=== PATIENT | female | born 1980 | race Hispanic/Latino ===

== ENCOUNTER → 2019-03-05 | Outpatient (CLI) | payer OTHER ==
[2019-03-05 10:27] LABS: BASOPHILS % (AUTO) 0.4 % (0.0-5.0); EOSINOPHILS % (AUTO) 1.2 % (0.0-8.0); HEMATOCRIT 24.4 % (36-48); LYMPHOCYTES % (AUTO) 22.1 % (21.0-51.0); MEAN CORPUSCULAR HEMOGLOBIN 34.1 pg (27.0-33.0); MEAN CORPUSCULAR VOLUME 100.3 fL (79-99); MONOCYTES % (AUTO) 5.3 % (3.0-13.0); NUCLEATED RED BLOOD CELLS 0.5 % (0.0-0.19); PLATELET COUNT (AUTO) 221 K/uL (130-400); RED BLOOD CELL COUNT(AUTO) 2.44 MIL/uL (4.00-5.50); RED CELL DISTRIBUTION WIDTH 14.9 % (11.0-15.5); WHITE BLOOD COUNT (AUTO) 8.7 K/uL (4.8-10.8)
[2019-03-05 10:39] LABS: % IRON SATURATION 26.7 % (22-44); HEMOGLOBIN A1C 5.1 % (4.0-6.0)
[2019-03-05 11:06] LABS: BILIRUBIN,TOTAL 0.3 mg/dL (0.2-1.0); CREATININE 0.7 mg/dL (0.5-1.5); POTASSIUM 3.8 mmol/L (3.5-5.1); THYROID STIMULATING HORMONE 7.34 uIU/mL (0.36-3.74); TOTAL PROTEIN, SERUM 7.2 g/dL (6.0-8.3)
== END | disposition home or self-care (01) ==
LOC: LAB 09:55
PROVIDERS: ATTEND Internal Medicine
DX: E78.2 Mixed hyperlipidemia (principal); D64.9 Anemia, unspecified; R53.83 Other fatigue; Z79.899 Other long term (current) drug therapy
CPT/HCPCS: 36415; 80053; 80061; 82607; 82746; 83036; 83540; 83550; 84443; 85025

== ENCOUNTER → 2019-03-08 | Outpatient (CLI) | payer OTHER ==
[~2019-03-08] MED LIST: ESOM40CA PO; FERR325T22 PO; SUCR1ORA5 PO
[2019-03-08 09:38] LABS: BASOPHILS % (AUTO) 0.6 % (0.0-5.0); EOSINOPHILS % (AUTO) 0.8 % (0.0-8.0); HEMATOCRIT 23.7 % (36-48); LYMPHOCYTES % (AUTO) 23.5 % (21.0-51.0); MEAN CORPUSCULAR HEMOGLOBIN 33.5 pg (27.0-33.0); MEAN CORPUSCULAR VOLUME 101.7 fL (79-99); MONOCYTES % (AUTO) 5.4 % (3.0-13.0); NEUTROPHILS % (AUTO) 69.7 % (40.0-77.0); NUCLEATED RED BLOOD CELLS 0.1 % (0.0-0.19); PLATELET COUNT (AUTO) 205 K/uL (130-400); RED BLOOD CELL COUNT(AUTO) 2.33 MIL/uL (4.00-5.50); RED CELL DISTRIBUTION WIDTH 16.2 % (11.0-15.5); WHITE BLOOD COUNT (AUTO) 7.1 K/uL (4.8-10.8)
[2019-03-08 09:56] LABS: INR 1.52 (0.85-1.15); PARTIAL THROMBOPLASTIN TIME 78.6 SEC (26.3-35.5); PROTHROMBIN TIME 15.8 SEC (9.6-11.6)
== END | disposition home or self-care (01) ==
LOC: LAB 08:49
PROVIDERS: ATTEND Internal Medicine
DX: D64.9 Anemia, unspecified (principal)
CPT/HCPCS: 36415; 85025; 85610; 85730

== ENCOUNTER 2019-03-09 16:10 | Inpatient (IN) | payer OTHER ==
[~2019-03-09] VITALS: Ht 154.9 cm; Wt 99.7 kg
[2019-03-09 16:45] LABS: APPEARANCE,URINE Clear (CLEAR); BILIRUBIN,URINE Negative (NEGATIVE); COLOR,URINE Yellow (YELLOW); GLUCOSE, URINE (UA) Negative (NEGATIVE); KETONES,URINE Negative (NEGATIVE); LEUKOCYTE ESTERASE ,URINE Negative (NEGATIVE); NITRATE,URINE Negative (NEGATIVE); OCCULT BLOOD,URINE Negative (NEGATIVE); PROTEIN,URINE Negative (NEGATIVE)
[2019-03-09 17:18] LABS: BASOPHILS % (AUTO) 0.4 % (0.0-5.0); EOSINOPHILS % (AUTO) 0.6 % (0.0-8.0); HEMATOCRIT 25.1 % (36-48); LYMPHOCYTES % (AUTO) 14.9 % (21.0-51.0); MEAN CORPUSCULAR HEMOGLOBIN 34.3 pg (27.0-33.0); MEAN CORPUSCULAR HGB CONC 33.9 g/dL (32.0-36.0); MEAN CORPUSCULAR VOLUME 101.2 fL (79-99); MONOCYTES % (AUTO) 6.1 % (3.0-13.0); NUCLEATED RED BLOOD CELLS 0.3 % (0.0-0.19); PLATELET COUNT (AUTO) 167 K/uL (130-400); RED BLOOD CELL COUNT(AUTO) 2.48 MIL/uL (4.00-5.50); RED CELL DISTRIBUTION WIDTH 16.6 % (11.0-15.5); WHITE BLOOD COUNT (AUTO) 8.3 K/uL (4.8-10.8)
[2019-03-09 17:31] LABS: CREATININE 0.9 mg/dL (0.5-1.5); POTASSIUM 3.9 mmol/L (3.5-5.1)
[2019-03-09 17:35] LABS: ALBUMIN 3.1 g/dL (3.5-5.0); BILIRUBIN,TOTAL 0.4 mg/dL (0.2-1.0); TOTAL PROTEIN, SERUM 7.7 g/dL (6.0-8.3)
[2019-03-09 19:06] LABS: INR 1.55 (0.85-1.15); PARTIAL THROMBOPLASTIN TIME 85.1 SEC (26.3-35.5); PROTHROMBIN TIME 16.1 SEC (9.6-11.6)
[2019-03-09] MEDS ORDERED: IOHEXOL-350 75 ML VIAL IV ONE ×2 (19:41→20:24)
[2019-03-09] MEDS ORDERED: POTASSIUM CHLORIDE 20MEQ/100ML 100 ML IV PRN (19:45)
[2019-03-09] MEDS ORDERED: MAG HYDROX/AL HYDROX/SIMETH ES 30 ML SUSP UDCUP PO PRN (19:45)
[2019-03-09] MEDS ORDERED: ONDANSETRON HCL 4 MG/2 ML VIAL IV PRN (19:45)
[2019-03-09] MEDS ORDERED: DIPHENHYDRAMINE HCL 25 MG CAPSULE PO PRN (19:45)
[2019-03-09] MEDS ORDERED: SUCR1ORA5 PO (19:45)
[2019-03-09] MEDS ORDERED: FERR325T22 PO (19:45)
[2019-03-09] MEDS ORDERED: POTASSIUM CHLORIDE 20 MEQ ERTAB PO PRN (19:45)
[2019-03-09] MEDS ORDERED: POTASSIUM CHLORIDE 10% ELIXIR 20 MEQ/15 ML UDCUP PO PRN (19:45)
[2019-03-09] MEDS ORDERED: LACTULOSE 20 GM/30 ML UDCUP PO PRN (19:45)
[2019-03-09] MEDS ORDERED: DiphenhydrAMINE HCL 50 MG/ML VIAL IV PRN (19:45)
[2019-03-09] MEDS ORDERED: LIDOCAINE HCL-MPF 1% 2ML VIAL IVP PRN (19:45)
[2019-03-09] MEDS ORDERED: ESOM40CA PO (19:45)
[2019-03-09] MEDS ORDERED: ACETAMINOPHEN 325 MG TAB PO PRN (19:45)
[2019-03-09 20:52] LABS: ABG HCO3 22.3 mmol/L (21.0-28.0); ABG OXYGEN SATURATION 93.7 % (95.0-99.0); ABG PCO2 33 mmHg (32-45)
[2019-03-09] MEDS ORDERED: NITROGLYCERIN 0.4 MG SL TAB SL PRN (21:30)
[2019-03-09] MEDS ORDERED: GUAIFENESIN-DM 200/20 MG 10 ML PO PRN (21:30)
[2019-03-09] MEDS ORDERED: CLONIDINE HCL 0.1 MG TABLET PO PRN (21:30)
[2019-03-09] MEDS ORDERED: ACETAMINOPHEN 325 MG TAB ONE (22:20)
[2019-03-10] VITALS (7 sets, daily range): BP systolic 107–137; BP diastolic 60–81
[2019-03-10 00:48] LABS: TROPONIN I 6.37 ng/mL (0.00-0.06)
--- NOTE | 2019-03-10 01:00 | NUR ---
NN CALL PLACED TO DR MICHELLE TO REPORT TROPONIN 6.37. PATIENT DENIES CHEST PAIN OR DISCOMFORT AT PRESENT TIME OF CALL. ANSWERING SERVICE TO ETHAN HAWLEY, PENDING CALL BACK.
[2019-03-10] MEDS: SODIUM CHLORIDE 0.9% 1000ML 1,000 ML IV SCH ×2 (01:39→05:28)
[2019-03-10] MEDS: FERROUS SULFATE 325 MG TABLET.DR PO SCH ×4 (01:40→20:46)
[2019-03-10] MEDS: PANTOPRAZOLE SODIUM 40 MG TABLET.DR PO SCH ×3 (01:41→20:46)
--- NOTE | 2019-03-10 02:30 | NUR ---
NN CALL PLACED TO DR MICHELLE VIA ANSWERING SERVICE DUE TO NO CALL BACK FROM PREVIOUS CALL. SPOKE TO DR MICHELLE AND INFORMED HER THAT PATIENT TROPONIN STARTED AT 3.57 ,2ND 4.03 AND LAST AT 6.37. PATIENT DENIES ANY CHEST PRESSURE OR DISCOMFORT AT THIS TIME BUT DID STATE THAT SHE WAS FEELING TIGHTENING TO MOUTH/JAW AREA EARLIER TODAY BUT NO LONGER EXPERIENCING. MD STATED THAT IF PATIENT NOT DISPLAYING OR VERBALIZING ANY CHEST PAIN WILL WAIT FOR 2DECHO RESULTS BEFORE ANY CONSULT ORDERS GIVEN.
[2019-03-10] MEDS: ZOLPIDEM TARTRATE 5 MG TAB PO PRN ×2 (03:40→22:33)
[2019-03-10] MEDS: ACETAMINOPHEN 325 MG TAB PO PRN ×2 (04:02→17:45)
[2019-03-10] MEDS ORDERED: SUCRALFATE 1 GM/10 ML ONE (05:30)
[2019-03-10] MEDS: SUCRALFATE 1 GM/10 ML PO SCH ×3 (06:25→17:33)
[2019-03-10 07:01] LABS: HEMATOCRIT 24.4 % (36-48); MEAN CORPUSCULAR HEMOGLOBIN 33.4 pg (27.0-33.0); MEAN CORPUSCULAR HGB CONC 33.2 g/dL (32.0-36.0); MEAN CORPUSCULAR VOLUME 100.9 fL (79-99); PLATELET COUNT (AUTO) 154 K/uL (130-400); RED BLOOD CELL COUNT(AUTO) 2.42 MIL/uL (4.00-5.50); RED CELL DISTRIBUTION WIDTH 16.8 % (11.0-15.5); WHITE BLOOD COUNT (AUTO) 8.1 K/uL (4.8-10.8)
--- NOTE | 2019-03-10 08:43 | NUR ---
Dr. Balbir em for elevated troponin of 10.96
--- NOTE | 2019-03-10 08:53 | NUR ---
Dr. Paula paged at this time for elevated troponin. Pending a call back
--- NOTE | 2019-03-10 20:35 | NUR ---
MD DR MICHELLE CALLED FOR UPDATES ON PT'S CONDITION AND CONSULT'S ORDERS. UPDATED MD BUT NO NEW ORDERS GIVEN.
[2019-03-10] MEDS ORDERED: FUROSEMIDE 10 MG/ML 2ML VIAL IVP SCH (21:00)
--- NOTE | 2019-03-10 21:11 | NUR ---
PAGED JACK FERNANDEZ NP FOR HOSPITALIST, PAGED VIA ANSWERING SERVICE. CALL CENTER SUPPORT CONSULTANT MADE AWARE OF PT'S COMPLAINTS OF PAINS ON HER CHEST WITH BREATHING, FACE AND NECK. NEW MED ORDERS GIVEN, PLEASE REFER TO CPOE. WILL MEDICATE PT.
[2019-03-10] MEDS ORDERED: METHYLPREDNISOLONE SOD SUCC 40MG/ML 1ML IVP SCH (21:15)
[2019-03-10] MEDS: KETOROLAC TROMETHAMINE 30MG/ML IV SCH ×2 (21:15→22:00)
[2019-03-10] MEDS ORDERED: METHYLPREDNISOLONE SOD SUCC 40MG/ML 1ML ONE (21:30)
[2019-03-10] MEDS ORDERED: KETOROLAC TROMETHAMINE 30MG/ML ONE (21:31)
[2019-03-10] MEDS: IPRATROPIUM/ALBUTEROL SULFATE 3 ML SOLUTION IH SCH (23:53)
--- NOTE | 2019-03-11 02:00 | NUR ---
ROUNDS PT FAIRLY ASLEEP, WITH RESPIRATIONS EVEN AND UNLABORED. NO NOTED DISTRESS. KEPT UNDISTURBED FOR NOW. WILL MONITOR PT. CALL LIGHT WITHIN REACH.
[2019-03-11 05:02] VITALS: BP 105/60
--- NOTE | 2019-03-11 05:41 | NUR ---
ROUNDS PT RESTING WELL, SLEPT AT LONG INTERVALS. NO DISTRESS NOTED. KEPT COMFORTABLE. FOR MORE CARE.
[2019-03-11] MEDS: KETOROLAC TROMETHAMINE 30MG/ML IV SCH (05:52)
[2019-03-11] MEDS: SUCRALFATE 1 GM TABLET PO SCH ×3 (06:35→17:11)
[2019-03-11] MEDS: IPRATROPIUM/ALBUTEROL SULFATE 3 ML SOLUTION IH SCH ×4 (07:21→23:06)
[2019-03-11] MEDS: PANTOPRAZOLE SODIUM 40 MG TABLET.DR PO SCH ×2 (09:34→20:36)
[2019-03-11] MEDS: FERROUS SULFATE 325 MG TABLET.DR PO SCH ×2 (09:34→20:36)
[2019-03-11] MEDS: FUROSEMIDE 20 MG TABLET PO SCH ×2 (09:34→17:11)
[2019-03-11] MEDS: PREDNISONE 20 MG TABLET PO SCH (09:34)
[2019-03-11 12:00] VITALS: BP 90/47
[2019-03-11 16:00] VITALS: BP 120/70
--- NOTE | 2019-03-11 17:20 | NUR ---
INITIAL:] Met with pt to discuss dcp. Pt states that prior to admission she was living w spouse and dtr. She is independent w ambulation and aDLs. Does not own any DME or receive services. Pt states she feels safe and comfortable to [place] at [place]. Will continue to follow and wait for Md recommendations. Addendum: 03/11/19 at 1721 by CLAUDIA BLUE CM Amended: Links added.
[2019-03-11 19:54] VITALS: BP 118/61
[2019-03-12] VITALS (13 sets, daily range): BP systolic 100–134; BP diastolic 54–83
[2019-03-12] MEDS: ZOLPIDEM TARTRATE 5 MG TAB PO PRN (00:27)
--- NOTE | 2019-03-12 00:27 | NUR ---
PEDRO LUIS Pt medicated with Pedro Luis for sleep.Pt showered and clipped per staff.
[2019-03-12] MEDS: SUCRALFATE 1 GM TABLET PO SCH ×3 (05:44→17:00)
[2019-03-12 06:11] LABS: HEMATOCRIT 24.8 % (36-48); MEAN CORPUSCULAR HGB CONC 31.8 g/dL (32.0-36.0); MEAN CORPUSCULAR VOLUME 100.4 fL (79-99); NUCLEATED RED BLOOD CELLS 0.1 % (0.0-0.19); PLATELET COUNT (AUTO) 192 K/uL (130-400); RED BLOOD CELL COUNT(AUTO) 2.47 MIL/uL (4.00-5.50); RED CELL DISTRIBUTION WIDTH 16.9 % (11.0-15.5); WHITE BLOOD COUNT (AUTO) 11.6 K/uL (4.8-10.8)
[2019-03-12 06:25] LABS: CREATININE 0.9 mg/dL (0.5-1.5); POTASSIUM 3.2 mmol/L (3.5-5.1)
[2019-03-12 06:32] LABS: INR 1.48 (0.85-1.15); PARTIAL THROMBOPLASTIN TIME 74.4 SEC (26.3-35.5); PROTHROMBIN TIME 15.4 SEC (9.6-11.6)
[2019-03-12] MEDS: IPRATROPIUM/ALBUTEROL SULFATE 3 ML SOLUTION IH SCH ×4 (07:23→23:53)
[2019-03-12] MEDS: PREDNISONE 20 MG TABLET PO SCH (09:00)
[2019-03-12] MEDS: FERROUS SULFATE 325 MG TABLET.DR PO SCH ×2 (09:00→21:01)
[2019-03-12] MEDS: FUROSEMIDE 20 MG TABLET PO SCH ×2 (09:00→17:00)
[2019-03-12] MEDS: PANTOPRAZOLE SODIUM 40 MG TABLET.DR PO SCH ×2 (09:00→21:01)
[2019-03-12] MEDS ORDERED: FURO20TA4 PO (13:52)
[2019-03-12] MEDS ORDERED: PRED10TA3 PO (13:52)
[2019-03-12] MEDS ORDERED: POTA10TA14 PO (13:52)
[2019-03-12] MEDS ORDERED: NITROGLYCERIN 5 MG/ML 10 ML VIAL IV ONE (18:06)
[2019-03-12] MEDS ORDERED: HEPARIN SODIUM 1000UNIT/ML 10ML VIAL ONE (18:06)
[2019-03-12] MEDS ORDERED: VERAPAMIL HCL 2.5 MG/ML VIAL ONE (18:06)
[2019-03-12] MEDS ORDERED: IOHEXOL 350 MG/ML 100ML INFUS..BTL IV ONE ×2 (18:07→19:37)
[2019-03-12] MEDS ORDERED: IOHEXOL-350 50ML VIAL IV ONE (18:07)
[2019-03-12] MEDS ORDERED: LIDOCAINE HCL 2% 20ML ONE (18:07)
[2019-03-12] MEDS ORDERED: POTASSIUM CHLORIDE 20 MEQ ERTAB PO ONE (19:15)
[2019-03-12] MEDS ORDERED: FENTANYL CITRATE PF 50 MCG/1 ML 2ML VIAL ONE (19:38)
[2019-03-12] MEDS ORDERED: MIDAZOLAM HCL 1 MG/ML 2ML VIAL ONE (19:39)
[2019-03-12] MEDS ORDERED: SODIUM CHLORIDE 0.9% 1000ML 1,000 ML IV SCH (20:07)
[2019-03-13] MEDS ORDERED: MORPHINE SULFATE 2 MG/ML 1ML SYG IVP PRN (03:00)
[2019-03-13] MEDS ORDERED: TRAMADOL HCL 50 MG TABLET PO PRN (03:00)
[2019-03-13] MEDS: MORPHINE SULFATE 2 MG/ML 1ML SYG ONE ×2 (03:07→03:10)
[2019-03-13 03:48] VITALS: BP 98/56
[2019-03-13] MEDS: IPRATROPIUM/ALBUTEROL SULFATE 3 ML SOLUTION IH SCH ×2 (05:13→10:48)
[2019-03-13 07:44] VITALS: BP 110/63
[2019-03-13] MEDS: SUCRALFATE 1 GM TABLET PO SCH ×2 (07:55→11:28)
[2019-03-13] MEDS: PANTOPRAZOLE SODIUM 40 MG TABLET.DR PO SCH (09:59)
[2019-03-13] MEDS: FERROUS SULFATE 325 MG TABLET.DR PO SCH (09:59)
[2019-03-13] MEDS: FUROSEMIDE 20 MG TABLET PO SCH (09:59)
[2019-03-13] MEDS: PREDNISONE 20 MG TABLET PO SCH (09:59)
[2019-03-13 11:22] VITALS: BP 107/61
[2019-03-13 15:13] VITALS: BP 104/59
== END 2019-03-13 15:35 | disposition home or self-care (01) | DRG 286 ==
LOC: EDH 16:10 → EDHIP 19:15 → OBSVTOIN 19:15 → 3DH 03-10 00:03 → 2AH 03-12 20:42
PROVIDERS: ADMIT Internal Medicine; ATTEND Internal Medicine
PROC: B2151ZZ Fluoroscopy of Left Heart using Low Osmolar Contrast (ICD-10-PCS; principal; 2019-03-12)
PROC: B2111ZZ Fluoroscopy of Multiple Coronary Arteries using Low Osmolar Contrast (ICD-10-PCS; 2019-03-12)
PROC: 4A023N7 Measurement of Cardiac Sampling and Pressure, Left Heart, Percutaneous Approach (ICD-10-PCS; 2019-03-12)
DX: I11.0 Hypertensive heart disease with heart failure (principal); I50.31 Acute diastolic (congestive) heart failure; D68.62 Lupus anticoagulant syndrome; Z68.41 Body mass index [BMI] 40.0-44.9, adult; M32.9 Systemic lupus erythematosus, unspecified; E66.01 Morbid (severe) obesity due to excess calories; K76.0 Fatty (change of) liver, not elsewhere classified; E88.81 Metabolic syndrome and other insulin resistance; K21.9 Gastro-esophageal reflux disease without esophagitis; E78.2 Mixed hyperlipidemia; J30.9 Allergic rhinitis, unspecified; F41.1 Generalized anxiety disorder; Z82.0 Family history of epilepsy and other diseases of the nervous system; Z82.3 Family history of stroke; Z82.49 Family history of ischemic heart disease and other diseases of the circulatory system; Z82.5 Family history of asthma and other chronic lower respiratory diseases; Z83.3 Family history of diabetes mellitus; Z90.710 Acquired absence of both cervix and uterus; Z90.721 Acquired absence of ovaries, unilateral
CPT/HCPCS: 36415; 36600; 71045; 71046; 71275; 74176; 80048; 80053; 81003; 82043; 82270; 82550; 82803; 82948; 83874; 83880; 84132; 84484; 85025; 85027; 85378; 85610; 85651; 85730; 86140; 86215; 86850; 86900; 86901; 93005; 93306; 93458; 93970; 94640; 94664; 99156; 99157; C1769; G0378; J1644; J1885; J1940; J2250; J2920; J3010; J3490; J7030; Q9967

== ENCOUNTER → 2019-03-15 | Outpatient (CLI) | payer OTHER ==
[~2019-03-15] MED LIST changes: +FURO20TA4 PO; +POTA10TA14 PO; +PRED10TA3 PO
[2019-03-15 14:11] LABS: BASOPHILS % (AUTO) 0.5 % (0.0-5.0); EOSINOPHILS % (AUTO) 0.4 % (0.0-8.0); HEMATOCRIT 28.2 % (36-48); LYMPHOCYTES % (AUTO) 11.2 % (21.0-51.0); MEAN CORPUSCULAR HEMOGLOBIN 31.5 pg (27.0-33.0); MEAN CORPUSCULAR HGB CONC 32.3 g/dL (32.0-36.0); MEAN CORPUSCULAR VOLUME 97.5 fL (79-99); NEUTROPHILS % (AUTO) 83.9 % (40.0-77.0); PLATELET COUNT (AUTO) 151 K/uL (130-400); RED BLOOD CELL COUNT(AUTO) 2.89 MIL/uL (4.00-5.50); RED CELL DISTRIBUTION WIDTH 16.2 % (11.0-15.5); WHITE BLOOD COUNT (AUTO) 10.9 K/uL (4.8-10.8)
== END | disposition home or self-care (01) ==
LOC: LAB 13:35
PROVIDERS: ATTEND Internal Medicine
DX: D69.1 Qualitative platelet defects (principal); D64.9 Anemia, unspecified
CPT/HCPCS: 36415; 85025

== ENCOUNTER → 2019-04-25 | Outpatient (CLI) | payer OTHER ==
[2019-04-25 10:50] LABS: BASOPHILS % (AUTO) 0.4 % (0.0-5.0); EOSINOPHILS % (AUTO) 1.3 % (0.0-8.0); HEMATOCRIT 34.3 % (36-48); MEAN CORPUSCULAR HEMOGLOBIN 32.4 pg (27.0-33.0); MEAN CORPUSCULAR HGB CONC 33.7 g/dL (32.0-36.0); MEAN CORPUSCULAR VOLUME 96.1 fL (79-99); MONOCYTES % (AUTO) 6.7 % (3.0-13.0); NEUTROPHILS % (AUTO) 60.6 % (40.0-77.0); PLATELET COUNT (AUTO) 252 K/uL (130-400); RED BLOOD CELL COUNT(AUTO) 3.57 MIL/uL (4.00-5.50); RED CELL DISTRIBUTION WIDTH 14.9 % (11.0-15.5); WHITE BLOOD COUNT (AUTO) 4.7 K/uL (4.8-10.8)
[2019-04-25 10:57] LABS: CREATININE 0.7 mg/dL (0.5-1.5); POTASSIUM 3.8 mmol/L (3.5-5.1)
[2019-04-25 11:08] LABS: INR 1.46 (0.85-1.15); PARTIAL THROMBOPLASTIN TIME 82.2 SEC (26.3-35.5); PROTHROMBIN TIME 15.2 SEC (9.6-11.6)
[2019-04-25 11:10] LABS: ALBUMIN 3.6 g/dL (3.5-5.0); BILIRUBIN,TOTAL 0.4 mg/dL (0.2-1.0); THYROID STIMULATING HORMONE 4.21 uIU/mL (0.36-3.74); TOTAL PROTEIN, SERUM 8.7 g/dL (6.0-8.3)
[2019-04-25 12:04] LABS: ERYTHROCYTE SEDIMENTATION RATE 106 MM/HR (0-20)
== END | disposition home or self-care (01) ==
LOC: LAB 09:13
PROVIDERS: ATTEND Internal Medicine
DX: R76.8 Other specified abnormal immunological findings in serum (principal)
CPT/HCPCS: 36415; 80053; 84443; 85025; 85610; 85651; 85730; 85732; 86038; 86235; 86255

== ENCOUNTER 2019-05-03 09:05 | Day surgery (SDC) | payer OTHER ==
[2019-05-03] VITALS (8 sets, daily range): BP systolic 114–136; BP diastolic 68–85
[~2019-05-03] VITALS: Ht 154.9 cm; Wt 101.6 kg
[~2019-05-03 09:05] MED LIST changes: -ESOM40CA PO; -FURO20TA4 PO; -POTA10TA14 PO; -PRED10TA3 PO; +SODIUM CHLORIDE 0.9% 1000ML 1,000 ML IV ONE
--- NOTE | 2019-05-03 12:01 | NUR ---
DISCHARGE PATIENT DISCHARGE HOME IN SATISFACTORY CONDITION VIA WHEEL CHAIR ACCOMPANIED BY HER GONSALO. NO DISTRESS NOTED. ALL DISCHARGE INSTRUCTION DISCUSSED AND COPIES HANDED TO PATIENT. NO QUESTIONS AT THIS TIME. PIV SITE W/ DRESSING, NO BLEEDING NOTED.
== END 2019-05-03 12:01 | disposition home or self-care (01) ==
LOC: DAH 09:05 → ENDO 09:05
PROVIDERS: ATTEND Internal Medicine
DX: D50.9 Iron deficiency anemia, unspecified (principal); K92.2 Gastrointestinal hemorrhage, unspecified; R10.13 Epigastric pain; Z90.710 Acquired absence of both cervix and uterus; Z79.899 Other long term (current) drug therapy; Z53.8 Procedure and treatment not carried out for other reasons
CPT/HCPCS: 43235; A4606; J7030

== ENCOUNTER → 2019-05-21 | Outpatient (CLI) | payer OTHER ==
[~2019-05-21] MED LIST changes: -SODIUM CHLORIDE 0.9% 1000ML 1,000 ML IV ONE
[2019-05-21 16:18] LABS: BASOPHILS % (AUTO) 0.7 % (0.0-5.0); EOSINOPHILS % (AUTO) 1.3 % (0.0-8.0); HEMATOCRIT 29.1 % (36-48); LYMPHOCYTES % (AUTO) 22.7 % (21.0-51.0); MEAN CORPUSCULAR HEMOGLOBIN 32.4 pg (27.0-33.0); MEAN CORPUSCULAR VOLUME 98.2 fL (79-99); MONOCYTES % (AUTO) 6.5 % (3.0-13.0); NEUTROPHILS % (AUTO) 68.8 % (40.0-77.0); NUCLEATED RED BLOOD CELLS 0.1 % (0.0-0.19); PLATELET COUNT (AUTO) 240 K/uL (130-400); RED BLOOD CELL COUNT(AUTO) 2.96 MIL/uL (4.00-5.50); WHITE BLOOD COUNT (AUTO) 7.2 K/uL (4.8-10.8)
[2019-05-21 16:38] LABS: INR 1.58 (0.85-1.15); PARTIAL THROMBOPLASTIN TIME 85.1 SEC (26.3-35.5); PROTHROMBIN TIME 16.4 SEC (9.6-11.6)
== END | disposition home or self-care (01) ==
LOC: RAH 15:39
PROVIDERS: ATTEND Internal Medicine
DX: D64.9 Anemia, unspecified (principal); K92.89 Other specified diseases of the digestive system; R60.9 Edema, unspecified; M54.2 Cervicalgia
CPT/HCPCS: 36415; 85025; 85610; 85730

== ENCOUNTER 2019-05-29 05:30 | Day surgery (SDC) | payer OTHER ==
[~2019-05-29] VITALS: Ht 154.9 cm; Wt 102.7 kg
[2019-05-29 05:35] VITALS: BP 146/79
[2019-05-29] MEDS ORDERED: SODIUM CHLORIDE 0.9% 1000ML 1,000 ML IV ONE (05:41)
[2019-05-29] MEDS ORDERED: OMEP40CA37 PO (06:01)
[2019-05-29] MEDS ORDERED: PROPOFOL 10 MG/ML 20ML VIAL IV ONE (07:11)
[2019-05-29 07:23] VITALS: BP 125/66
[2019-05-29 07:27] VITALS: BP 107/72
[2019-05-29 07:32] VITALS: BP 109/69
[2019-05-29 07:37] VITALS: BP 122/71
[2019-05-29 07:42] VITALS: BP 132/79
== END 2019-05-29 07:52 | disposition home or self-care (01) ==
LOC: ENDO 05:30 → DAH 05:30 → ENDO 07:52
PROVIDERS: ATTEND Internal Medicine
DX: K29.50 Unspecified chronic gastritis without bleeding (principal); K31.89 Other diseases of stomach and duodenum; K20.8 Other esophagitis; E66.9 Obesity, unspecified; Z68.41 Body mass index [BMI] 40.0-44.9, adult; D50.9 Iron deficiency anemia, unspecified; Z98.890 Other specified postprocedural states; Z79.899 Other long term (current) drug therapy; Z90.710 Acquired absence of both cervix and uterus; Z82.49 Family history of ischemic heart disease and other diseases of the circulatory system; Z83.3 Family history of diabetes mellitus; Z82.3 Family history of stroke
CPT/HCPCS: 43239; A4606; J2704; J7030

== ENCOUNTER → 2019-08-30 | Outpatient (CLI) | payer OTHER ==
[~2019-08-30] MED LIST changes: +OMEP40CA13 PO
[2019-08-30 11:21] LABS: BASOPHILS % (AUTO) 0.5 % (0.0-5.0); EOSINOPHILS % (AUTO) 0.9 % (0.0-8.0); HEMATOCRIT 34.9 % (36-48); LYMPHOCYTES % (AUTO) 33.3 % (21.0-51.0); MEAN CORPUSCULAR HEMOGLOBIN 31.6 pg (27.0-33.0); MEAN CORPUSCULAR HGB CONC 33.5 g/dL (32.0-36.0); MEAN CORPUSCULAR VOLUME 94.3 fL (79-99); MONOCYTES % (AUTO) 5.5 % (3.0-13.0); NEUTROPHILS % (AUTO) 59.8 % (40.0-77.0); NUCLEATED RED BLOOD CELLS 0.1 % (0.0-0.19); PLATELET COUNT (AUTO) 256 K/uL (130-400); RED CELL DISTRIBUTION WIDTH 14.8 % (11.0-15.5); WHITE BLOOD COUNT (AUTO) 5.8 K/uL (4.8-10.8)
[2019-08-30 11:40] LABS: INR 1.78 (0.85-1.15); PROTHROMBIN TIME 18.3 SEC (9.6-11.6)
[2019-08-30 11:41] LABS: ALBUMIN 3.4 g/dL (3.5-5.0); BILIRUBIN,TOTAL 0.4 mg/dL (0.2-1.0); CREATININE 0.7 mg/dL (0.5-1.5); POTASSIUM 4.1 mmol/L (3.5-5.1); TOTAL PROTEIN, SERUM 8.1 g/dL (6.0-8.3)
[2019-08-30 11:57] LABS: PARTIAL THROMBOPLASTIN TIME 93.1 SEC (26.3-35.5)
== END | disposition home or self-care (01) ==
LOC: LAB 10:18
PROVIDERS: ATTEND Internal Medicine
DX: D64.9 Anemia, unspecified (principal); E78.2 Mixed hyperlipidemia
CPT/HCPCS: 36415; 80053; 80061; 85025; 85610; 85730

== ENCOUNTER → 2020-01-07 | Outpatient (CLI) | payer OTHER ==
[~2020-01-07] MED LIST changes: +SUCR1ORA15 PO; -SUCR1ORA5 PO
[2020-01-07 15:20] LABS: BASOPHILS % (AUTO) 0.2 % (0.0-5.0); EOSINOPHILS % (AUTO) 1.1 % (0.0-8.0); HEMATOCRIT 22.9 % (36-48); LYMPHOCYTES % (AUTO) 26.4 % (21.0-51.0); MEAN CORPUSCULAR HEMOGLOBIN 27.4 pg (27.0-33.0); MEAN CORPUSCULAR HGB CONC 28.8 g/dL (32.0-36.0); MONOCYTES % (AUTO) 3.8 % (3.0-13.0); NEUTROPHILS % (AUTO) 67.7 % (40.0-77.0); NUCLEATED RED BLOOD CELLS 0.8 % (0.0-0.19); PLATELET COUNT (AUTO) 280 K/uL (130-400); RED BLOOD CELL COUNT(AUTO) 2.41 MIL/uL (4.00-5.50); RED CELL DISTRIBUTION WIDTH 16.9 % (11.0-15.5); WHITE BLOOD COUNT (AUTO) 6.1 K/uL (4.8-10.8)
[2020-01-07 15:28] LABS: HEMOGLOBIN A1C 4.5 % (4.0-6.0)
[2020-01-07 15:40] LABS: INR 1.52 (0.85-1.15); PARTIAL THROMBOPLASTIN TIME 80.9 SEC (26.3-35.5); PROTHROMBIN TIME 16.2 SEC (9.6-11.6)
[2020-01-07 16:05] LABS: ALANINE AMINOTRANSFERASE 37 U/L (12-78); ALBUMIN 3.3 g/dL (3.5-5.0); ASPARTATE AMINOTRANSFERASE 27 U/L (10-37); BILIRUBIN,TOTAL 0.3 mg/dL (0.2-1.0); CARBON DIOXIDE 27 mmol/L (21-32); CHLORIDE 104 mmol/L (101-111); CHOLESTEROL 152 mg/dL (<200); CREATININE 0.8 mg/dL (0.5-1.5); GLOMERULAR FILTR. RATE CALC 85 mL/min (>60); GLUCOSE,RANDOM 116 mg/dL (70-105); HDL CHOLESTEROL 37 mg/dL (35-85); LDL DIRECT 103 mg/dL (0-99); POTASSIUM 3.6 mmol/L (3.5-5.1); SODIUM SERUM 138 mmol/L (136-145); TOTAL PROTEIN, SERUM 7.8 g/dL (6.0-8.3); TRIGLYCERIDES 81 mg/dL (30-200); UREA NITROGEN, BLOOD 12 mg/dL (7-18)
[2020-01-07 16:25] LABS: FERRITIN 15 ng/mL (15-150); IRON, SERUM 33 mcg/dL (50-170)
== END | disposition home or self-care (01) ==
LOC: LAB 14:24
PROVIDERS: ATTEND Internal Medicine
DX: Z13.29 Encounter for screening for other suspected endocrine disorder (principal); E78.2 Mixed hyperlipidemia; E88.81 Metabolic syndrome and other insulin resistance; D64.9 Anemia, unspecified
CPT/HCPCS: 36415; 80053; 80061; 82607; 82728; 82746; 83036; 83540; 85025; 85610; 85730

== ENCOUNTER 2020-01-08 08:55 | Day surgery (SDC) | payer OTHER ==
[~2020-01-08] VITALS: Ht 157.5 cm; Wt 102.5 kg
[2020-01-08 09:36] VITALS: BP 140/73
--- NOTE | 2020-01-08 13:20 | NUR ---
blood blood transfusion started at this time witness by jeffry mercado rn. pt instructed to call nurse for any s&s of itching, hives, sob, or anything different. blood warmer being used for blood transfusion. spouse at bedside. call light within reach.
[2020-01-08 14:43] VITALS: BP 108/54
[2020-01-08 15:35] VITALS: BP 114/53
[2020-01-08 16:09] LABS: BASOPHILS % (AUTO) 0.3 % (0.0-5.0); EOSINOPHILS % (AUTO) 1.3 % (0.0-8.0); HEMATOCRIT 24.8 % (36-48); LYMPHOCYTES % (AUTO) 28.4 % (21.0-51.0); MEAN CORPUSCULAR HEMOGLOBIN 27.9 pg (27.0-33.0); MEAN CORPUSCULAR HGB CONC 29.8 g/dL (32.0-36.0); MEAN CORPUSCULAR VOLUME 93.6 fL (79-99); NEUTROPHILS % (AUTO) 62.1 % (40.0-77.0); NUCLEATED RED BLOOD CELLS 0.7 % (0.0-0.19); PLATELET COUNT (AUTO) 268 K/uL (130-400); RED BLOOD CELL COUNT(AUTO) 2.65 MIL/uL (4.00-5.50); RED CELL DISTRIBUTION WIDTH 16.5 % (11.0-15.5)
[2020-03-10] MEDS ORDERED: MONT10TA26 PO ×2 (17:04)
[2020-03-13] MEDS ORDERED: PANT40TA54 PO ×2 (08:32)
[2020-03-24] MEDS ORDERED: IRON SUPPLEMENT PO ×2 (12:19)
[2020-03-25] MEDS ORDERED: FURO40TA5 PO ×2 (08:41)
[2020-03-25] MEDS ORDERED: POTA-79 PO ×2 (08:41)
== END 2020-01-08 16:10 | disposition home or self-care (01) ==
LOC: DAH 08:55
PROVIDERS: ATTEND Internal Medicine
DX: D64.9 Anemia, unspecified (principal)
CPT/HCPCS: 36415; 36430; 85025; 86156; 86850; 86870; 86900; 86901; 86922; A4215; A4216; A4221; A4222; A4657; A4663; P9016

== ENCOUNTER 2020-01-14 10:43 | Day surgery (SDC) | payer OTHER ==
[2020-01-14 11:00] VITALS: BP 133/76
[2020-01-14 11:59] LABS: BASOPHILS % (AUTO) 0.2 % (0.0-5.0); EOSINOPHILS % (AUTO) 0.2 % (0.0-8.0); HEMATOCRIT 26.9 % (36-48); MEAN CORPUSCULAR HEMOGLOBIN 27.6 pg (27.0-33.0); MEAN CORPUSCULAR HGB CONC 29.7 g/dL (32.0-36.0); MEAN CORPUSCULAR VOLUME 92.8 fL (79-99); MONOCYTES % (AUTO) 5.2 % (3.0-13.0); NUCLEATED RED BLOOD CELLS 0.2 % (0.0-0.19); PLATELET COUNT (AUTO) 220 K/uL (130-400); RED CELL DISTRIBUTION WIDTH 16.6 % (11.0-15.5); WHITE BLOOD COUNT (AUTO) 12.2 K/uL (4.8-10.8)
--- NOTE | 2020-01-14 12:30 | NUR ---
CBC RESULTS REPORTED TO DR. MICHELLE OFFICE, H 8.0, PT NOT SYMPTOMATIC. PER KRIS CLAIRE,VISE HAND HOLD TRANSFUSION, DOES NOT MEET CRITERIA.
[2020-03-10] MEDS ORDERED: MONT10TA26 PO ×2 (17:04)
[2020-03-13] MEDS ORDERED: PANT40TA54 PO ×2 (08:32)
[2020-03-24] MEDS ORDERED: IRON SUPPLEMENT PO ×2 (12:19)
[2020-03-25] MEDS ORDERED: POTA-79 PO ×2 (08:41)
[2020-03-25] MEDS ORDERED: FURO40TA5 PO ×2 (08:41)
== END 2020-01-14 12:43 | disposition home or self-care (01) ==
LOC: DAH 10:43
PROVIDERS: ATTEND Internal Medicine
DX: D64.9 Anemia, unspecified (principal); Z79.899 Other long term (current) drug therapy; Z98.890 Other specified postprocedural states; Z82.49 Family history of ischemic heart disease and other diseases of the circulatory system; Z83.3 Family history of diabetes mellitus
CPT/HCPCS: 36415; 85025; 86901

== ENCOUNTER → 2020-01-21 | Outpatient (CLI) | payer OTHER ==
[2020-01-21 10:00] LABS: BASOPHILS % (AUTO) 0.2 % (0.0-5.0); EOSINOPHILS % (AUTO) 0.6 % (0.0-8.0); HEMATOCRIT 31.5 % (36-48); LYMPHOCYTES % (AUTO) 32.1 % (21.0-51.0); MEAN CORPUSCULAR HEMOGLOBIN 26.2 pg (27.0-33.0); MEAN CORPUSCULAR HGB CONC 28.9 g/dL (32.0-36.0); MEAN CORPUSCULAR VOLUME 90.8 fL (79-99); MONOCYTES % (AUTO) 4.7 % (3.0-13.0); PLATELET COUNT (AUTO) 246 K/uL (130-400); RED BLOOD CELL COUNT(AUTO) 3.47 MIL/uL (4.00-5.50); RED CELL DISTRIBUTION WIDTH 14.8 % (11.0-15.5); WHITE BLOOD COUNT (AUTO) 10.5 K/uL (4.8-10.8)
== END | disposition home or self-care (01) ==
LOC: LAB 09:11
PROVIDERS: ATTEND Internal Medicine
DX: D68.9 Coagulation defect, unspecified (principal); Z87.19 Personal history of other diseases of the digestive system
CPT/HCPCS: 36415; 85025

== ENCOUNTER → 2020-01-29 | Outpatient (CLI) | payer OTHER ==
[~2020-01-29] MED LIST changes: +ACET1TAB12 PO; +CYAN250014 PO; +FAMO20TA8 PO; +FAMO40TA7 PO; +FOLI0.8C PO; +FURO20TA6 PO; +FURO40TA5 PO; +IRON SUPPLEMENT PO; +MONT10TA26 PO; +PANT40TA54 PO; +POTA-79 PO; +PRED10TA3 PO; +SUCR1TAB2 PO; +THIA100T91 PO
[2020-01-29 10:44] LABS: BASOPHILS % (AUTO) 0.4 % (0.0-5.0); HEMATOCRIT 32.6 % (36-48); LYMPHOCYTES % (AUTO) 23.6 % (21.0-51.0); MEAN CORPUSCULAR HEMOGLOBIN 26.6 pg (27.0-33.0); MEAN CORPUSCULAR HGB CONC 29.4 g/dL (32.0-36.0); MEAN CORPUSCULAR VOLUME 90.3 fL (79-99); MONOCYTES % (AUTO) 6.9 % (3.0-13.0); NEUTROPHILS % (AUTO) 67.6 % (40.0-77.0); PLATELET COUNT (AUTO) 308 K/uL (130-400); RED BLOOD CELL COUNT(AUTO) 3.61 MIL/uL (4.00-5.50); RED CELL DISTRIBUTION WIDTH 14.6 % (11.0-15.5)
== END | disposition home or self-care (01) ==
LOC: LAB 09:45
PROVIDERS: ATTEND Internal Medicine
DX: D64.9 Anemia, unspecified (principal)
CPT/HCPCS: 36415; 85025

== ENCOUNTER → 2020-02-13 | Outpatient (CLI) | payer OTHER ==
[~2020-02-13] MED LIST changes: -ACET1TAB12 PO; -CYAN250014 PO; -FAMO20TA8 PO; -FAMO40TA7 PO; -FOLI0.8C PO; -FURO20TA6 PO; -FURO40TA5 PO; -IRON SUPPLEMENT PO; -MONT10TA26 PO; -PANT40TA54 PO; -POTA-79 PO; -PRED10TA3 PO; -SUCR1TAB2 PO; -THIA100T91 PO
[2020-02-13 10:26] LABS: BASOPHILS % (AUTO) 0.4 % (0.0-5.0); EOSINOPHILS % (AUTO) 1.5 % (0.0-8.0); LYMPHOCYTES % (AUTO) 27.8 % (21.0-51.0); MEAN CORPUSCULAR HEMOGLOBIN 27.2 pg (27.0-33.0); MEAN CORPUSCULAR HGB CONC 30.3 g/dL (32.0-36.0); MEAN CORPUSCULAR VOLUME 89.9 fL (79-99); MONOCYTES % (AUTO) 8.3 % (3.0-13.0); NEUTROPHILS % (AUTO) 61.4 % (40.0-77.0); NUCLEATED RED BLOOD CELLS 0.4 % (0.0-0.19); PLATELET COUNT (AUTO) 236 K/uL (130-400); RED BLOOD CELL COUNT(AUTO) 3.56 MIL/uL (4.00-5.50); RED CELL DISTRIBUTION WIDTH 15.2 % (11.0-15.5); WHITE BLOOD COUNT (AUTO) 4.8 K/uL (4.8-10.8)
== END | disposition home or self-care (01) ==
LOC: LAB 10:07
PROVIDERS: ATTEND Internal Medicine
DX: D64.9 Anemia, unspecified (principal)
CPT/HCPCS: 36415; 85025

== ENCOUNTER → 2020-02-25 | Outpatient (CLI) | payer OTHER ==
[2020-02-25 09:00] LABS: BASOPHILS % (AUTO) 0.4 % (0.0-5.0); EOSINOPHILS % (AUTO) 0.9 % (0.0-8.0); HEMATOCRIT 33.4 % (36-48); LYMPHOCYTES % (AUTO) 18.2 % (21.0-51.0); MEAN CORPUSCULAR HEMOGLOBIN 27.5 pg (27.0-33.0); MEAN CORPUSCULAR HGB CONC 29.9 g/dL (32.0-36.0); MONOCYTES % (AUTO) 6.1 % (3.0-13.0); PLATELET COUNT (AUTO) 228 K/uL (130-400); RED BLOOD CELL COUNT(AUTO) 3.63 MIL/uL (4.00-5.50); RED CELL DISTRIBUTION WIDTH 16.3 % (11.0-15.5)
== END | disposition home or self-care (01) ==
LOC: LAB 08:17
PROVIDERS: ATTEND Internal Medicine
DX: D64.9 Anemia, unspecified (principal)
CPT/HCPCS: 36415; 85025

== ENCOUNTER 2020-02-29 06:17 | Day surgery (SDC) | payer OTHER ==
[2020-02-29] VITALS (7 sets, daily range): BP systolic 108–136; BP diastolic 58–113
[~2020-02-29] VITALS: Ht 154.9 cm; Wt 104.3 kg
[2020-02-29] MEDS ORDERED: SODIUM CHLORIDE 0.9% 1000ML 1,000 ML IV ONE (06:24)
[2020-02-29] MEDS ORDERED: CYAN250014 PO ×2 (07:39)
[2020-02-29] MEDS ORDERED: FOLI0.8C PO ×2 (07:39)
[2020-02-29] MEDS ORDERED: FAMO20TA8 PO ×2 (07:39)
[2020-02-29] MEDS ORDERED: FURO20TA6 PO ×2 (07:39)
[2020-02-29] MEDS ORDERED: FENTANYL CITRATE PF 50 MCG/1 ML 2ML VIAL ONE (08:09)
[2020-02-29] MEDS ORDERED: LIDOCAINE HCL-MPF 2% 5ML VIAL ONE (08:09)
[2020-02-29] MEDS ORDERED: PROPOFOL 10 MG/ML 20ML VIAL IV ONE ×4 (08:09→08:36)
[2020-02-29] MEDS ORDERED: GLYCOPYRROLATE 0.2 MG/ML 5 ML VIAL ONE (08:10)
[2020-02-29] MEDS ORDERED: EPINEPHRINE 1 MG/ML AMPULE ONE (08:20)
[2020-02-29] MEDS ORDERED: PHENYLEPHRINE HCL 10 MG/ML 1ML VIAL IV ONE (08:43)
[2020-03-10] MEDS ORDERED: MONT10TA26 PO ×2 (17:04)
[2020-03-13] MEDS ORDERED: PANT40TA54 PO ×2 (08:32)
[2020-03-24] MEDS ORDERED: IRON SUPPLEMENT PO ×2 (12:19)
[2020-03-25] MEDS ORDERED: POTA-79 PO ×2 (08:41)
[2020-03-25] MEDS ORDERED: FURO40TA5 PO ×2 (08:41)
== END 2020-02-29 10:00 | disposition home or self-care (01) ==
LOC: DAH 06:17 → ENDO 06:17
PROVIDERS: ATTEND Internal Medicine
DX: K92.2 Gastrointestinal hemorrhage, unspecified (principal); K63.5 Polyp of colon; K31.89 Other diseases of stomach and duodenum; K31.7 Polyp of stomach and duodenum; K22.8 Other specified diseases of esophagus; D64.9 Anemia, unspecified; E66.9 Obesity, unspecified
CPT/HCPCS: 43239; 43251; 43255; 45380; A4215; A4221; A4222; A4223; A4606; A4620; A4649 ×2; A4657; A4663; J0171; J2370; J2704 ×4; J3010; J3490 ×2; J7030 ×2

== ENCOUNTER 2020-03-07 10:41 | Day surgery (SDC) | payer OTHER ==
[2020-03-07] VITALS (9 sets, daily range): BP systolic 108–122; BP diastolic 40–89
[2020-03-07 09:38] LABS: BASOPHILS % (AUTO) 0.1 % (0.0-5.0); EOSINOPHILS % (AUTO) 1.3 % (0.0-8.0); LYMPHOCYTES % (AUTO) 23.6 % (21.0-51.0); MEAN CORPUSCULAR HEMOGLOBIN 29.4 pg (27.0-33.0); MEAN CORPUSCULAR HGB CONC 29.1 g/dL (32.0-36.0); MONOCYTES % (AUTO) 7.5 % (3.0-13.0); NEUTROPHILS % (AUTO) 65.8 % (40.0-77.0); NUCLEATED RED BLOOD CELLS 3.5 % (0.0-0.19); PLATELET COUNT (AUTO) 162 K/uL (130-400); RED BLOOD CELL COUNT(AUTO) 2.04 MIL/uL (4.00-5.50); RED CELL DISTRIBUTION WIDTH 20.2 % (11.0-15.5); WHITE BLOOD COUNT (AUTO) 7.5 K/uL (4.8-10.8)
[2020-03-07 09:43] LABS: HEMATOCRIT 20.6 % (36-48)
[~2020-03-07 10:41] MED LIST changes: +CYAN250014 PO; +FAMO20TA8 PO; +FOLI0.8C PO; +FURO20TA6 PO
[2020-03-07] MEDS ORDERED: SODIUM CHLORIDE 0.9% 1000ML 1,000 ML IV ONE (11:39)
--- NOTE | 2020-03-07 14:30 | NUR ---
Blood transfusion started checked with 2 RNs and blood warmer used.discussed signs of blood transfusion reaction pt voices understanding Addendum: 03/07/20 at 1537 by VINCENT MARR RN RN Amended: Links added.
--- NOTE | 2020-03-07 19:51 | NUR ---
PT STABLE, NO REACTION TO BLOOD TRANSFUSION. PT GIVEN DISCHARGE INSTRUCTIONS. VERBALIZED UNDERSTANDING. PT IV D/C , PT DRESSED PT TAKEN OUT IN WHEELCHAIR TO CAR.
== END 2020-03-07 18:20 | disposition home or self-care (01) ==
LOC: DAH 10:41
PROVIDERS: ATTEND Internal Medicine
DX: D64.9 Anemia, unspecified (principal)
CPT/HCPCS: 36415; 36430; 85025; 86156; 86850; 86870; 86900; 86901; 86922; A4215; A4216; A4221; A4222; A4606; A4663; J7030; P9016

== ENCOUNTER 2020-03-10 15:54 | Inpatient (IN) | payer OTHER ==
[~2020-03-10] VITALS: Ht 154.9 cm; Wt 102.3 kg
[~2020-03-10 15:54] MED LIST changes: -FAMO40TA7 PO; -FURO40TA5 PO; -MONT10TA26 PO; -POTA-79 PO
[2020-03-10 16:25] VITALS: BP 120/62
[2020-03-10] MEDS ORDERED: FURO40TA5 PO (17:04)
[2020-03-10] MEDS ORDERED: FAMO40TA7 PO (17:04)
[2020-03-10] MEDS ORDERED: MONT10TA26 PO (17:04)
[2020-03-10] MEDS ORDERED: POTA-79 PO (17:04)
[2020-03-10] MEDS ORDERED: LACTULOSE 20 GM/30 ML UDCUP PO PRN (17:30)
[2020-03-10] MEDS ORDERED: MAG HYDROX/AL HYDROX/SIMETH ES 30 ML SUSP UDCUP PO PRN (17:30)
[2020-03-10] MEDS ORDERED: ACETAMINOPHEN 325 MG TAB PO PRN (17:30)
[2020-03-10] MEDS ORDERED: DiphenhydrAMINE HCL 50 MG/ML VIAL IV PRN (17:30)
[2020-03-10] MEDS ORDERED: ONDANSETRON HCL 4 MG/2 ML VIAL IV PRN (17:30)
[2020-03-10] MEDS ORDERED: LIDOCAINE HCL-MPF 1% 2ML VIAL IJ PRN (17:45)
[2020-03-10] MEDS ORDERED: POTASSIUM CHLORIDE 10% ELIXIR 20 MEQ/15 ML UDCUP PO PRN (17:45)
[2020-03-10] MEDS ORDERED: POTASSIUM CHLORIDE 20MEQ/100ML 100 ML IV PRN ×2 (17:45)
[2020-03-10] MEDS ORDERED: LIDOCAINE HCL-MPF 1% 2ML VIAL IV PRN (17:45)
[2020-03-10 17:52] LABS: MEAN CORPUSCULAR HEMOGLOBIN 30.1 pg (27.0-33.0); MEAN CORPUSCULAR HGB CONC 29.6 g/dL (32.0-36.0); MEAN CORPUSCULAR VOLUME 101.5 fL (79-99); NUCLEATED RED BLOOD CELLS 2.3 % (0.0-0.19); RED BLOOD CELL COUNT(AUTO) 1.96 MIL/uL (4.00-5.50); WHITE BLOOD COUNT (AUTO) 7.4 K/uL (4.8-10.8)
[2020-03-10 18:06] LABS: CREATININE 0.9 mg/dL (0.5-1.5); POTASSIUM 3.5 mmol/L (3.5-5.1)
[2020-03-10 18:21] LABS: HEMATOCRIT 19.9 % (36-48)
[2020-03-10 20:12] LABS: INR 1.48 (0.85-1.15); PROTHROMBIN TIME 15.7 SEC (9.6-11.6)
--- NOTE | 2020-03-10 20:46 | NUR ---
2029: 's medical management specialist Angelita Heller called to check on patient's status. Informed her, she stated she would call with the update and call if any new orders. 2042: I paged Dr. Mcgregor via answering service. 2045: called back informed her of PT/PTT/INR results 15.7/71.0/1.48. I received orders to administer Lasix 40mg IVP and potassium 20 meq po after 1st unit of PRBC, also to do H/H after the 2nd unit of PRBC 2 hours after.
[2020-03-10 21:06] VITALS: BP 138/60
[2020-03-10] MEDS: POTASSIUM CHLORIDE 20 MEQ ERTAB PO PRN ×2 (21:18→23:00)
[2020-03-10] MEDS: FAMOTIDINE/PF 20 MG/2 ML VIAL IV SCH (21:19)
--- NOTE | 2020-03-10 21:55 | NUR ---
Natan from blood bank called and stated PRBC taking long due to patient has a history of Cold Antibioties. So I would be needing a warmer to before administering PRBC. Patient made aware of delay verbalized understanding.
[2020-03-10] MEDS: ACETAMINOPHEN 325 MG TAB PO PRN (22:16)
[2020-03-10] MEDS ORDERED: POTASSIUM CHLORIDE 20 MEQ ERTAB PO SCH (23:55)
[2020-03-10] MEDS ORDERED: FUROSEMIDE 10 MG/ML 4ML VIAL IV SCH (23:55)
[2020-03-11] VITALS (10 sets, daily range): BP systolic 100–132; BP diastolic 50–91
[2020-03-11] MEDS ORDERED: SODIUM CHLORIDE 0.9% 500ML 500 ML IV ONE ×2 (00:29→06:34)
[2020-03-11] MEDS ORDERED: FUROSEMIDE 10 MG/ML 4ML VIAL ONE (05:09)
[2020-03-11] MEDS ORDERED: SODIUM CHLORIDE 0.9% 250 ML IV ONE (06:13)
--- NOTE | 2020-03-11 08:04 | NUR ---
0600: Picked up the blood for transfusion, then set up the warmer with new tubing and blood was going in when patient started complaining of pain to site, checked site with good blood return but very painful. 0645: Attempted to restart a new one to rt forearm, unsuccessful. 0700: Incoming nurse attempted to start a new one to rt antecubital region without success. 0800: Incoming nurse again attempting to restart saline lock. called and asked an update on patient's status. Informed her patient received 1 unit of PRBC, which was completed at 0500. The second unit was transfusing when the IV site started to hurt, and had to be removed. So far we have not been able to restart saline lock. Also informed her that Dr. Mobley ordered for Hematology consult, if ok with her, and increased patient's diet to full liquid. Orders received to consult , and to do morning labs. Scott GOMEZ made aware.
--- NOTE | 2020-03-11 09:14 | NUR ---
paged dr. allison to notify her that dr. caldwell is the fashion consultant sales for surgery today.
[2020-03-11] MEDS: POTASSIUM CHLORIDE 20 MEQ ERTAB PO SCH ×2 (10:24→20:42)
[2020-03-11] MEDS: MONTELUKAST SODIUM 10 MG TAB PO SCH (10:25)
[2020-03-11] MEDS: CYANOCOBALAMIN (VITAMIN B-12) 1,000 MCG TABLET PO SCH (10:25)
[2020-03-11] MEDS: FAMOTIDINE/PF 20 MG/2 ML VIAL IV SCH ×2 (10:26→20:42)
[2020-03-11] MEDS: PANTOPRAZOLE SODIUM 40 MG TABLET.DR PO SCH (10:26)
[2020-03-11] MEDS: FOLIC ACID 1 MG TABLET PO SCH (10:26)
[2020-03-11 12:04] LABS: HEMATOCRIT 27.3 % (36-48); MEAN CORPUSCULAR HEMOGLOBIN 29.7 pg (27.0-33.0); MEAN CORPUSCULAR HGB CONC 30.8 g/dL (32.0-36.0); MEAN CORPUSCULAR VOLUME 96.5 fL (79-99); NUCLEATED RED BLOOD CELLS 1.6 % (0.0-0.19); RED BLOOD CELL COUNT(AUTO) 2.83 MIL/uL (4.00-5.50); RED CELL DISTRIBUTION WIDTH 19.9 % (11.0-15.5); WHITE BLOOD COUNT (AUTO) 7.5 K/uL (4.8-10.8)
[2020-03-11 12:12] LABS: CREATININE 0.8 mg/dL (0.5-1.5); POTASSIUM 3.7 mmol/L (3.5-5.1)
[2020-03-11 12:16] LABS: INR 1.5 (0.85-1.15); PARTIAL THROMBOPLASTIN TIME 76.3 SEC (26.3-35.5)
[2020-03-11] MEDS: FUROSEMIDE 10 MG/ML 4ML VIAL IV SCH (12:23)
[2020-03-11] MEDS: POTASSIUM CHLORIDE 20 MEQ ERTAB PO PRN (12:27)
[2020-03-11 12:36] LABS: RETICULOCYTE % (AUTO) 9.75 % (0.42-2.23)
--- NOTE | 2020-03-11 15:37 | NUR ---
[facility] CM spoke to pt's spouse Gabriel White discussed dc plans. Per spouse pt is independent prior to admission, lives at home with spouse. Denies any equipments/services. Feel safe to go back home, still drives and works, spouse able to assist with transportation and needs as necessary. DC plan to home once stable. CM to cont to follow up. Addendum: 03/11/20 at 1538 by SONY BROWNLEE LVN CM Amended: Links added.
[2020-03-11] MEDS: ACETAMINOPHEN 325 MG TAB PO PRN (20:52)
[2020-03-12] VITALS (24 sets, daily range): BP systolic 97–137; BP diastolic 53–82
[2020-03-12 05:10] LABS: HEMATOCRIT 28.8 % (36-48); MEAN CORPUSCULAR HEMOGLOBIN 29.9 pg (27.0-33.0); MEAN CORPUSCULAR HGB CONC 30.9 g/dL (32.0-36.0); MEAN CORPUSCULAR VOLUME 96.6 fL (79-99); NUCLEATED RED BLOOD CELLS 1.1 % (0.0-0.19); RED BLOOD CELL COUNT(AUTO) 2.98 MIL/uL (4.00-5.50); WHITE BLOOD COUNT (AUTO) 6.5 K/uL (4.8-10.8)
[2020-03-12 05:30] LABS: INR 1.54 (0.85-1.15); PROTHROMBIN TIME 16.4 SEC (9.6-11.6)
[2020-03-12 05:39] LABS: POTASSIUM 3.8 mmol/L (3.5-5.1)
[2020-03-12] MEDS: FUROSEMIDE 10 MG/ML 4ML VIAL IV SCH (07:35)
[2020-03-12] MEDS: MONTELUKAST SODIUM 10 MG TAB PO SCH ×2 (09:00→12:41)
[2020-03-12] MEDS: FAMOTIDINE/PF 20 MG/2 ML VIAL IV SCH ×2 (09:00→12:40)
[2020-03-12] MEDS: CYANOCOBALAMIN (VITAMIN B-12) 1,000 MCG TABLET PO SCH ×2 (09:00→12:41)
[2020-03-12] MEDS ORDERED: MIDAZOLAM HCL 1 MG/ML 2ML VIAL ONE (09:49)
[2020-03-12] MEDS ORDERED: FENTANYL CITRATE PF 50 MCG/1 ML 2ML VIAL ONE (09:49)
[2020-03-12] MEDS ORDERED: LIDOCAINE HCL 2% 20ML ONE (09:49)
[2020-03-12] MEDS ORDERED: PROPOFOL 10 MG/ML 20ML VIAL IV ONE (09:49)
[2020-03-12] MEDS ORDERED: SUCCINYLCHOLINE 200MG/10ML SYR ONE (09:49)
[2020-03-12] MEDS: PANTOPRAZOLE SODIUM 40 MG TABLET.DR PO SCH ×2 (12:40→21:01)
[2020-03-12] MEDS: POTASSIUM CHLORIDE 20 MEQ ERTAB PO SCH ×3 (12:41→21:01)
[2020-03-12] MEDS: FOLIC ACID 1 MG TABLET PO SCH ×2 (12:41→17:32)
[2020-03-12] MEDS ORDERED: DIATR MEGLU/DIATRIZOATE SODIUM 30 ML BOTTLE ONE (15:06)
[2020-03-12] MEDS ORDERED: IOHEXOL-350 75 ML VIAL IV ONE (16:40)
[2020-03-12 17:50] LABS: HEMATOCRIT 28.6 % (36-48)
[2020-03-13 03:46] VITALS: BP 102/58
[2020-03-13 04:37] LABS: HEMATOCRIT 25.8 % (36-48); MEAN CORPUSCULAR HEMOGLOBIN 29.9 pg (27.0-33.0); MEAN CORPUSCULAR HGB CONC 30.2 g/dL (32.0-36.0); MEAN CORPUSCULAR VOLUME 98.9 fL (79-99); NUCLEATED RED BLOOD CELLS 0.3 % (0.0-0.19); RED BLOOD CELL COUNT(AUTO) 2.61 MIL/uL (4.00-5.50); RED CELL DISTRIBUTION WIDTH 20.3 % (11.0-15.5); WHITE BLOOD COUNT (AUTO) 6.3 K/uL (4.8-10.8)
[2020-03-13 07:50] VITALS: BP 103/32
[2020-03-13] MEDS ORDERED: PANT40TA25 PO (08:32)
[2020-03-13] MEDS: FUROSEMIDE 10 MG/ML 4ML VIAL IV SCH (09:00)
[2020-03-13] MEDS: PANTOPRAZOLE SODIUM 40 MG TABLET.DR PO SCH (09:33)
[2020-03-13] MEDS: FOLIC ACID 1 MG TABLET PO SCH (09:33)
[2020-03-13] MEDS: MONTELUKAST SODIUM 10 MG TAB PO SCH (09:33)
[2020-03-13] MEDS: POTASSIUM CHLORIDE 20 MEQ ERTAB PO SCH (09:34)
[2020-03-13] MEDS: CYANOCOBALAMIN (VITAMIN B-12) 1,000 MCG TABLET PO SCH (09:35)
[2020-03-13] MEDS: FAMOTIDINE/PF 20 MG/2 ML VIAL IV SCH (09:37)
--- NOTE | 2020-03-13 12:15 | NUR ---
DISCHARGE INSTRUCTIONS PATIENT GIVEN DISCHARGE INSTRUCTION AND VERBALIZED UNDERSTANDING , TELEMETRY UNIT NOTIFIED OF DISCHARGE AND MONITORING UNIT REMOVED, REVIEWED FOLLOW-UP APPOINTMENTS WITH DR MICHELLE AND DR RAINES 03/20/20 AT 0945, IV REMOVED WITH CATHETER INTACT AND SITE DRESSED, PATIENT ROBY PAIN AND NO QUESTIONS OR CONCERNS AT THIS TIME. PATIENT CALLED FOR CLOTHES AND RIDE HOME
--- NOTE | 2020-03-13 12:27 | NUR ---
DISCHARGE PATIENT DRESSED AND RIDE HERE . PATIENT TAKING BY WHEELCHAIR TO LOBBY FOR RIDE HOME
[2020-03-13 12:38] VITALS: BP 111/67
== END 2020-03-13 12:25 | disposition home or self-care (01) | DRG 815 ==
LOC: EDH 15:54 → 3AH 15:55 → OBSVTOIN 15:55
PROVIDERS: ADMIT Internal Medicine; ATTEND Internal Medicine
PROC: 30233N1 Transfusion of Nonautologous Red Blood Cells into Peripheral Vein, Percutaneous Approach (ICD-10-PCS; principal; 2020-03-11)
PROC: 0D568ZZ Destruction of Stomach, Via Natural or Artificial Opening Endoscopic (ICD-10-PCS; 2020-03-12)
DX: D68.62 Lupus anticoagulant syndrome (principal); Z68.41 Body mass index [BMI] 40.0-44.9, adult; D50.0 Iron deficiency anemia secondary to blood loss (chronic); D68.9 Coagulation defect, unspecified; T45.515A Adverse effect of anticoagulants, initial encounter; E78.5 Hyperlipidemia, unspecified; E66.01 Morbid (severe) obesity due to excess calories; K21.9 Gastro-esophageal reflux disease without esophagitis; K76.0 Fatty (change of) liver, not elsewhere classified; Z90.710 Acquired absence of both cervix and uterus; E88.81 Metabolic syndrome and other insulin resistance; Z82.0 Family history of epilepsy and other diseases of the nervous system; Z82.3 Family history of stroke; Z83.3 Family history of diabetes mellitus; Z85.028 Personal history of other malignant neoplasm of stomach; Y92.89 Other specified places as the place of occurrence of the external cause
CPT/HCPCS: 36415; 36430; 43236; 43255; 45388; 74170; 80048; 82270; 85014; 85018; 85027; 85045; 85610; 85730; 86156; 86850; 86870; 86900; 86901; 86922; A4606; G0378; J0171; J0330; J1940; J2250; J2405; J2704; J3010; J3490; J7030; J7040; P9016; Q9963; Q9967

== ENCOUNTER → 2020-03-10 | Outpatient (CLI) | payer OTHER ==
[~2020-03-10] MED LIST changes: +FAMO40TA7 PO; +FURO40TA5 PO; +MONT10TA26 PO; +POTA-79 PO
[2020-03-10 12:24] LABS: BASOPHILS % (AUTO) 0.2 % (0.0-5.0); LYMPHOCYTES % (AUTO) 21.5 % (21.0-51.0); MEAN CORPUSCULAR HEMOGLOBIN 30.2 pg (27.0-33.0); MEAN CORPUSCULAR HGB CONC 29.4 g/dL (32.0-36.0); MEAN CORPUSCULAR VOLUME 102.5 fL (79-99); MONOCYTES % (AUTO) 5.4 % (3.0-13.0); NEUTROPHILS % (AUTO) 70.5 % (40.0-77.0); NUCLEATED RED BLOOD CELLS 2.4 % (0.0-0.19); PLATELET COUNT (AUTO) 210 K/uL (130-400); RED BLOOD CELL COUNT(AUTO) 1.99 MIL/uL (4.00-5.50); RED CELL DISTRIBUTION WIDTH 20.8 % (11.0-15.5); WHITE BLOOD COUNT (AUTO) 9.6 K/uL (4.8-10.8)
[2020-03-10 12:46] LABS: HEMATOCRIT 20.4 % (36-48)
== END | disposition home or self-care (01) ==
LOC: LAB 11:39
PROVIDERS: ATTEND Internal Medicine
DX: D64.9 Anemia, unspecified (principal)
CPT/HCPCS: 36415; 85025

== ENCOUNTER → 2020-03-18 | Outpatient (CLI) | payer OTHER ==
[~2020-03-18] MED LIST changes: +FAMO40TA7 PO; +FURO40TA5 PO; +MONT10TA26 PO; +PANT40TA25 PO; +POTA-79 PO
[2020-03-18 11:55] LABS: BASOPHILS % (AUTO) 0.3 % (0.0-5.0); EOSINOPHILS % (AUTO) 1.3 % (0.0-8.0); HEMATOCRIT 28.1 % (36-48); MEAN CORPUSCULAR HGB CONC 29.9 g/dL (32.0-36.0); MEAN CORPUSCULAR VOLUME 100.4 fL (79-99); MONOCYTES % (AUTO) 5.6 % (3.0-13.0); NEUTROPHILS % (AUTO) 67.3 % (40.0-77.0); PLATELET COUNT (AUTO) 235 K/uL (130-400); RED CELL DISTRIBUTION WIDTH 18.8 % (11.0-15.5); WHITE BLOOD COUNT (AUTO) 6.3 K/uL (4.8-10.8)
== END | disposition home or self-care (01) ==
LOC: LAB 11:16
PROVIDERS: ATTEND Internal Medicine
DX: D64.9 Anemia, unspecified (principal)
CPT/HCPCS: 36415; 85025

== ENCOUNTER 2020-03-24 10:00 | Inpatient (IN) | payer OTHER ==
[~2020-03-24] VITALS: Ht 154.9 cm; Wt 100.2 kg
[~2020-03-24 10:00] MED LIST changes: -FAMO20TA8 PO; -FAMO40TA7 PO; -FERR325T22 PO; -FURO20TA6 PO; -FURO40TA5 PO; -OMEP40CA13 PO; -PANT40TA25 PO; +PANT40TA54 PO; -POTA-79 PO; -SUCR1ORA15 PO
[2020-03-24 11:12] LABS: BASOPHILS % (AUTO) 0.3 % (0.0-5.0); EOSINOPHILS % (AUTO) 0.6 % (0.0-8.0); HEMATOCRIT 24.8 % (36-48); MEAN CORPUSCULAR HEMOGLOBIN 32.1 pg (27.0-33.0); MEAN CORPUSCULAR HGB CONC 30.2 g/dL (32.0-36.0); MONOCYTES % (AUTO) 6.3 % (3.0-13.0); NEUTROPHILS % (AUTO) 65.3 % (40.0-77.0); NUCLEATED RED BLOOD CELLS 0.3 % (0.0-0.19); PLATELET COUNT (AUTO) 242 K/uL (130-400); RED BLOOD CELL COUNT(AUTO) 2.34 MIL/uL (4.00-5.50); RED CELL DISTRIBUTION WIDTH 19.9 % (11.0-15.5); WHITE BLOOD COUNT (AUTO) 6.3 K/uL (4.8-10.8)
[2020-03-24 11:44] VITALS: BP 128/64
[2020-03-24] MEDS ORDERED: IRON SUPPLEMENT PO (12:19)
[2020-03-24] MEDS ORDERED: PRED10TA3 PO (12:20)
[2020-03-24] MEDS ORDERED: SUCR1TAB2 PO (12:20)
--- NOTE | 2020-03-24 13:02 | NUR ---
RE: ABNORMAL LABS CALLED DR RICHARDS'S OFFICE AND SPOKE WITH LORETTA. WAS INSTRUCTED TO FAX LABS TO OFFICE AND WAIT FOR DR RICHARDS TO CALL WITH ANY ORDERS. FAXED LABS (CBC) TO DR RICHARDS'S OFFICE ATT: LORETTA/DR RICHARDS.
--- NOTE | 2020-03-24 14:38 | NUR ---
RE: ABNORMAL LABS RECEIVED ORDERS FROM DR RICHARDS'S OFFICE ([facility]) FOR TYPE AND SCREEN IN AM BEFORE SURGERY
[2020-03-25] VITALS (24 sets, daily range): BP systolic 107–141; BP diastolic 56–83
[2020-03-25] MEDS ORDERED: BUPIVACAINE/PF 0.25% 30ML VIAL IJ ONE (04:19)
[2020-03-25] MEDS ORDERED: KETAMINE 50MG/ML SYRINGE 50 MG/ML DISP.SYRIN IV ONE (04:20)
[2020-03-25] MEDS ORDERED: DEXAMETHASONE SOD PHOSPHATE 4 MG/ML 1ML VIAL ONE (04:22)
[2020-03-25] MEDS ORDERED: LIDOCAINE PF 2% 5ML ABBOJECT ONE (04:22)
[2020-03-25] MEDS ORDERED: FENTANYL CITRATE PF 50 MCG/1 ML 5ML AMP IV ONE (04:23)
[2020-03-25] MEDS ORDERED: ROCURONIUM 10MG/1ML SYR 10 MG/ML ML ONE ×2 (04:23→05:29)
[2020-03-25] MEDS ORDERED: MIDAZOLAM HCL 1 MG/ML 2ML VIAL ONE (04:23)
[2020-03-25] MEDS ORDERED: PROPOFOL 10 MG/ML 20ML VIAL IV ONE (04:23)
[2020-03-25] MEDS ORDERED: ONDANSETRON HCL 4 MG/2 ML VIAL ONE (04:27)
[2020-03-25] MEDS ORDERED: SUCCINYLCHOLINE CHLORIDE 20 MG/ML 10 ML VIAL ONE (04:27)
[2020-03-25] MEDS ORDERED: LACTATED RINGERS 1000ML 1,000 ML IV ONE (04:33)
[2020-03-25] MEDS: CEFOXITIN SODIUM 2 GM VIAL IVP SCH ×2 (04:59→05:20)
[2020-03-25] MEDS ORDERED: BUPIVACAINE/EPI/PF 0.5% 30ML VIAL IJ ONE (05:34)
[2020-03-25] MEDS ORDERED: PHENYLEPHRINE HCL 10 MG/ML 1ML VIAL IV ONE (06:54)
[2020-03-25] MEDS ORDERED: NEOSTIGMINE 5MG/5ML SYR IV ONE (07:04)
[2020-03-25] MEDS ORDERED: GLYCOPYRROLATE 1 MG/5 ML SYRINGE ONE (07:04)
[2020-03-25] MEDS ORDERED: MEPERIDINE-PF 25 MG/ML SYG ONE ×4 (07:38→19:55)
[2020-03-25] MEDS ORDERED: FURO40TA5 PO (08:41)
[2020-03-25] MEDS ORDERED: POTA-79 PO (08:41)
[2020-03-25] MEDS: LACTATED RINGERS 1000ML 1,000 ML IV SCH ×2 (09:30→16:21)
[2020-03-25] MEDS ORDERED: PROMETHAZINE HCL 25 MG/ML 1ML AMPULE IM PRN ×2 (09:30→09:45)
[2020-03-25] MEDS ORDERED: ONDANSETRON HCL 4 MG/2 ML VIAL IVP PRN ×2 (09:30→09:45)
[2020-03-25] MEDS ORDERED: MEPERIDINE-PF 25 MG/ML SYG IV PRN (09:45)
[2020-03-25] MEDS ORDERED: LACTATED RINGERS 1000ML 1,000 ML IV SCH (09:45)
[2020-03-25] MEDS ORDERED: APAP/CODEINE 120/12MG 5ML PO PRN (09:45)
[2020-03-25] MEDS: APAP/CODEINE 120/12MG 5ML PO PRN (10:15)
[2020-03-25] MEDS: MEPERIDINE HCL/PF 25 MG/0.5 ML AMPUL IM PRN ×2 (12:05→16:26)
--- NOTE | 2020-03-25 16:28 | NUR ---
NUTRITION EDUCATION RD provided Post-Op Gastric Sleeve Nutrition Education. RD provided Bariatric Post-Op Meal-Planning packet and reviewed with Pt. RD answered all of Pt questions. Pt verbalized understanding. RD provided Contact Information as questions or concerns arise. NUTRITIONAL ASSESSMENT Pt tolerating Clear Liquid-Bariatric Phase I with slow sipping. Pt experiencing burping/gas. Pt with abdominal pain, Demerol, Tylenol-codeine in place. Pt is ambulating and seen by PT. Addendum: 03/25/20 at [address] RD Amended: Links added.
[2020-03-25] MEDS: MEPERIDINE HCL/PF 25 MG/0.5 ML AMPUL IV PRN (20:21)
[2020-03-26] MEDS: MEPERIDINE HCL/PF 25 MG/0.5 ML AMPUL IV PRN ×2 (00:04→07:58)
[2020-03-26] MEDS: LACTATED RINGERS 1000ML 1,000 ML IV SCH ×2 (00:08→07:54)
[2020-03-26 00:34] VITALS: BP 111/61
[2020-03-26 04:14] VITALS: BP_SYST 131; BP_SYST 138; BP_DIAS 72; BP_DIAS 75
[2020-03-26] MEDS: CEFOXITIN SODIUM 2 GM VIAL IVP SCH (05:00)
[2020-03-26 07:27] VITALS: BP 118/69
[2020-03-26] MEDS ORDERED: FOLIC ACID 1 MG TABLET PO SCH (09:00)
[2020-03-26] MEDS ORDERED: PANTOPRAZOLE SODIUM 40 MG TABLET.DR PO SCH ×2 (09:00)
[2020-03-26] MEDS ORDERED: ACET1TAB12 PO (09:21)
[2020-03-26 11:08] VITALS: BP 110/51
--- NOTE | 2020-03-26 11:11 | NUR ---
CM NOTE/IA MEET WITH PATIENT IN ROOM. PER PATIENT, IS INDEPENDENT WITH ADLS, LIVES WITH SPOUSE AND HER 17 YR OLD DAUGHTER, NO PROVIDER OR DME IN USE AND FEELS SAFE TO RETURN HOME. DCP HOME WHEN MEDICALLY CLEARED. Addendum: 03/26/20 at 1112 by QUENTIN RIVAS RN CM Amended: Links added.
[2020-03-26] MEDS: APAP/CODEINE 120/12MG 5ML PO PRN (11:12)
--- NOTE | 2020-03-26 14:11 | NUR ---
DISCHARGE INSTRUCTIONS GIVEN TO PATIENT, MADE AWARE OF NEW RX FOR TYLENOL ELIXIR, ZOFRAN, AND PHENERGAN. EDUCATED ON POST OP CARE OF INCISIONS, AND DIET. PROVIDED WITH WRITTEN EDUCATIONS WELL. PATIENT VOICED UNDERSTANDING. MADE AWARE OF FOLLOW UP WITH DR. MICHELLE AND DR. RICHARDS. PATIENT AT THIS TIME AMBULATING IN ROOM WITH MINIMUM ASSIST. DENIES PAIN OR SHORTNESS OF BREATH. DRESSINGS TO ABDOMEN DRY AND INTACT. PATIENT WILL BE PICKED UP SPOUSE
[2020-04-04] MEDS ORDERED: THIA100T91 PO (11:39)
== END 2020-03-26 14:30 | disposition home or self-care (01) | DRG 375 ==
LOC: DAHIP 03-25 04:15 → 4AH 03-25 08:24 → EDSTATUS 03-25 10:00
PROVIDERS: ADMIT Surgery; ATTEND Surgery
PROC: 0DB64ZZ Excision of Stomach, Percutaneous Endoscopic Approach (ICD-10-PCS; principal; 2020-03-25 05:16)
DX: C49.A2 Gastrointestinal stromal tumor of stomach (principal); Z68.41 Body mass index [BMI] 40.0-44.9, adult; D68.62 Lupus anticoagulant syndrome; E66.01 Morbid (severe) obesity due to excess calories; E88.81 Metabolic syndrome and other insulin resistance; K76.0 Fatty (change of) liver, not elsewhere classified; K21.9 Gastro-esophageal reflux disease without esophagitis; J30.9 Allergic rhinitis, unspecified; D64.9 Anemia, unspecified; Z90.721 Acquired absence of ovaries, unilateral
CPT/HCPCS: 36415; 80048; 85025; 85045; 86850; 86860; 86870; 86880; 86900; 86901; 86922; 86971; 97039; G0378; J0330; J0694; J1100; J2001; J2175; J2250; J2370; J2405; J2704; J2710; J3010; J3490; J7030; J7120

== ENCOUNTER → 2020-03-31 | Outpatient (CLI) | payer OTHER | END | disposition home or self-care (01) | LOC: LAB 09:58 | PROVIDERS: ATTEND Internal Medicine | DX: D50.0 Iron deficiency anemia secondary to blood loss (chronic) (principal) ==

== ENCOUNTER 2020-04-03 11:22 | Inpatient (IN) | payer OTHER ==
[~2020-04-03] VITALS: Ht 154.9 cm; Wt 93.0 kg
[~2020-04-03 11:22] MED LIST changes: +ACET1TAB12 PO; +FAMO20TA8 PO; +FAMO40TA7 PO; +FERR325T22 PO; +FURO20TA6 PO; +FURO40TA5 PO; +IRON SUPPLEMENT PO; +OMEP40CA13 PO; +POTA-79 PO; +PRED10TA3 PO; +SUCR1ORA15 PO; +SUCR1TAB2 PO
[2020-04-03 12:56] VITALS: BP 108/71
[2020-04-03 14:26] LABS: HEMATOCRIT 22.5 % (36-48)
--- NOTE | 2020-04-03 14:45 | NUR ---
DR. MICHELLE'S HYDROELECTRIC PLANT STRUCTURAL ENGINEER NOTIFIED OF CARE BEING TRANSFERRED TO HER FROM DR. MARTÍNEZ. SPOKE WITH EDEL IN THE OFFICE WHO STATED WOULD RELAY MESSAGE TO DR. MICHELLE.
[2020-04-03] MEDS ORDERED: ACETAMINOPHEN 325 MG TAB PO PRN ×2 (15:45)
[2020-04-03] MEDS ORDERED: POTASSIUM CHLORIDE 10% ELIXIR 20 MEQ/15 ML UDCUP PO PRN (15:45)
[2020-04-03] MEDS ORDERED: ONDANSETRON HCL 4 MG/2 ML VIAL IV PRN (15:45)
[2020-04-03] MEDS ORDERED: POTASSIUM CHLORIDE 20MEQ/100ML 100 ML IV PRN ×2 (15:45)
[2020-04-03] MEDS ORDERED: LIDOCAINE HCL-MPF 1% 2ML VIAL IJ PRN ×2 (15:45)
[2020-04-03] MEDS ORDERED: ACETAMINOPHEN 325 MG TAB ONE (16:03)
[2020-04-03] MEDS: SODIUM CHLORIDE 0.9% 1000ML 1,000 ML IV SCH (16:09)
[2020-04-03 16:10] LABS: INR 1.57 (0.85-1.15); PROTHROMBIN TIME 16.7 SEC (9.6-11.6)
[2020-04-03 16:17] VITALS: BP 112/66
[2020-04-03 16:21] LABS: PARTIAL THROMBOPLASTIN TIME 92.7 SEC (26.3-35.5)
[2020-04-03] MEDS: PANTOPRAZOLE 40 MG/VIAL IVP SCH (19:01)
--- NOTE | 2020-04-03 21:10 | NUR ---
BLOOD BANK SPOKE TO BLOOD BANK PERSONNEL, BLOOD PRODUCTS MAY NOT BE AVAILABLE UNTIL WEDNESDAY, APRIL 04 Addendum: 04/04/20 at 0155 by KEELY RASHID LVN Amended: Links added.
[2020-04-03 21:30] VITALS: BP 114/58
[2020-04-03] MEDS: TRAMADOL HCL 50 MG TABLET PO PRN (21:56)
[2020-04-03 22:55] VITALS: BP 115/70
[2020-04-03] MEDS: POTASSIUM CHLORIDE 20 MEQ ERTAB PO PRN (23:00)
[2020-04-04] VITALS (7 sets, daily range): BP systolic 90–116; BP diastolic 53–68
[2020-04-04] MEDS: POTASSIUM CHLORIDE 20 MEQ ERTAB PO PRN ×2 (01:02→03:20)
[2020-04-04] MEDS: SODIUM CHLORIDE 0.9% 1000ML 1,000 ML IV SCH ×4 (03:29→20:30)
[2020-04-04] MEDS: TRAMADOL HCL 50 MG TABLET PO PRN ×2 (05:06→14:46)
[2020-04-04] MEDS: PANTOPRAZOLE 40 MG/VIAL IVP SCH (08:50)
[2020-04-04] MEDS: CYANOCOBALAMIN (VITAMIN B-12) 1,000 MCG TABLET PO SCH (08:50)
[2020-04-04] MEDS: FOLIC ACID 1 MG TABLET PO SCH (08:52)
--- NOTE | 2020-04-04 10:01 | NUR ---
RD NOTE Pt is Post-Op Gastrectomy as of 03/25/2020. Pt drinks Ensure Max at home;currently unavailable, RD offered 60mL ProMod TID, Pt agreed to try. RD provided Post-Op Bariatric Nutrition meal planning packet, discussed Phase II-Full Liquid nutrition recommendations, discussed recommended protein intake, recommend multivitamin supplementation and hydration. RD contact information provided to Pt. Please notify as additional nutrition concerns arise. Thank you.
--- NOTE | 2020-04-04 11:30 | NUR ---
DR. MICHELLE ROUNDED AND NEW LABS ORDERED ON PATIENT AND DISCONTINUED H/H Q6H PRN. PATIENT IS STABLE BUT C/O HAVING LEFT EAR PAIN AND THINKS IT'S BECAUSE OF HER ANEMIA AND HEART PROBABLY WORKING TOO FAST. ONLY LABS ORDERED FOR A.M. AND NOW AND OCCULT BLOOD STOOL SINGLE ONLY.
[2020-04-04] MEDS ORDERED: THIA100T91 PO ×2 (11:39)
[2020-04-04 12:21] LABS: HEMATOCRIT 23.1 % (36-48); MEAN CORPUSCULAR HEMOGLOBIN 29.5 pg (27.0-33.0); MEAN CORPUSCULAR HGB CONC 29.9 g/dL (32.0-36.0); MEAN CORPUSCULAR VOLUME 98.7 fL (79-99); NUCLEATED RED BLOOD CELLS 0.4 % (0.0-0.19); RED BLOOD CELL COUNT(AUTO) 2.34 MIL/uL (4.00-5.50); RED CELL DISTRIBUTION WIDTH 17.7 % (11.0-15.5); WHITE BLOOD COUNT (AUTO) 5.4 K/uL (4.8-10.8)
[2020-04-04 12:29] LABS: POTASSIUM 3.6 mmol/L (3.5-5.1)
--- NOTE | 2020-04-04 16:06 | NUR ---
RD UPDATE Ensure Max -4ct. delivered to Pt room. Pt request of Chocolate, Chocolate unavailable. Pt okay with Mixed Cooper. Pt asleep upon delivery. Guest in room notified.
--- NOTE | 2020-04-04 16:15 | NUR ---
NISHA FROM BLOOD BANK CALLED AND INDICATED HAVING UNITS OF BLOOD WITH LEAST INCOMPATIBILITY AVAILABLE AND DR. MICHELLE AND FROM LAB HAD AGREED ON BLOOD, NURSE NEEDED TO SIGN FOR RELEASE OF BLOOD. WAS INFORMED BLOOD NEEDED TO BE RUN THROUGH BLOOD WARMER.
[2020-04-04] MEDS ORDERED: DIPHENHYDRAMINE HCL 25 MG CAPSULE ONE (16:40)
[2020-04-04] MEDS ORDERED: ACETAMINOPHEN 325 MG TAB PO SCH (17:29)
[2020-04-04] MEDS ORDERED: DIPHENHYDRAMINE HCL 25 MG CAPSULE PO SCH (17:30)
[2020-04-04 17:32] LABS: % IRON SATURATION 12.6 % (22-44)
--- NOTE | 2020-04-04 19:15 | NUR ---
BEDSIDE REPORT GIVEN TO Temitope ARMSTRONG RN AND PATIENT TOLERATING BLOOD TRANSFUSION WELL. DENIES ANY ADVERSE REACTION OF BLOOD TRANSFUSION.
--- NOTE | 2020-04-04 19:40 | NUR ---
PRBC UNIT #1 INFUSED, V/S STABLE. NO REACTION NOTED.
--- NOTE | 2020-04-04 19:50 | NUR ---
PRBC UNIT #2 STARTED.
--- NOTE | 2020-04-04 20:05 | NUR ---
VITAL SIGNS REMAIN STABLE, SEE BLOOD FLOW SHEET.
--- NOTE | 2020-04-04 21:00 | NUR ---
VITAL SIGNS STABLE. NO REACTION NOTED.
--- NOTE | 2020-04-04 22:30 | NUR ---
PRBC UNIT #2 INFUSED. VITALS REMAIN STABLE. NO REACTION NOTED OR REPORTED.
--- NOTE | 2020-04-04 23:30 | NUR ---
VITAL SIGNS STABLE. PT RESTING QUIETLY, DENIED PAIN AND DISCOMFORT.
[2020-04-05 04:17] VITALS: BP 116/66
[2020-04-05] MEDS: SODIUM CHLORIDE 0.9% 1000ML 1,000 ML IV SCH ×3 (05:30→13:30)
[2020-04-05 06:02] LABS: HEMATOCRIT 31.2 % (36-48); MEAN CORPUSCULAR HEMOGLOBIN 29.3 pg (27.0-33.0); MEAN CORPUSCULAR HGB CONC 31.4 g/dL (32.0-36.0); MEAN CORPUSCULAR VOLUME 93.1 fL (79-99); NUCLEATED RED BLOOD CELLS 0.5 % (0.0-0.19); RED BLOOD CELL COUNT(AUTO) 3.35 MIL/uL (4.00-5.50); RED CELL DISTRIBUTION WIDTH 18.3 % (11.0-15.5); WHITE BLOOD COUNT (AUTO) 6.6 K/uL (4.8-10.8)
--- NOTE | 2020-04-05 07:30 | NUR ---
DR. MARTÍNEZ ROUNDED AND INDICATED HOPEFULLY PATIENT WILL BE ABLE TO GO HOME.
[2020-04-05 08:42] VITALS: BP 125/78
[2020-04-05] MEDS: PANTOPRAZOLE 40 MG/VIAL IVP SCH (08:43)
[2020-04-05] MEDS: CYANOCOBALAMIN (VITAMIN B-12) 1,000 MCG TABLET PO SCH (08:45)
[2020-04-05] MEDS: FOLIC ACID 1 MG TABLET PO SCH (08:45)
[2020-04-05] MEDS ORDERED: THIAMINE HCL 100 MG TABLET PO SCH (09:00)
[2020-04-05 12:00] VITALS: BP 99/65
--- NOTE | 2020-04-05 12:30 | NUR ---
DR. MICHELLE ROUNDED AND DISCHARGED PATIENT TO HOME. PATIENT TO FOLLOW UP WITH DR. MICHELLE IN 2-[address] MICHELLE INDICATED HER OFFICE WOULD CALL PATIENT WITH FOLLOW UP APPOINTMENT. Addendum: 04/05/20 at 1357 by JEANETTE PÉREZ RN ORDER RECEIVED AT THIS TIME TO REMOVE PIV AND WAS REMOVED. IV SITE WNL.
--- NOTE | 2020-04-05 13:00 | NUR ---
DISCHARGE INSTRUCTIONS GIVEN AND BOTH PATIENT AND MOTHER VERBALIZED UNDERSTANDING INSTRUCTIONS GIVEN. PATIENT HAS REMAINED AFEBRILE AND DENIES PAIN. INFORMED PATIENT THAT VIT. B1 WAS TRANSMITTED BY DR. MICHELLE TO [facility] IN [place].
--- NOTE | 2020-04-05 13:30 | NUR ---
PATIENT WAS TAKEN VIA WC TO HER MOTHER'S CAR AND WAS DISCHARGED. PATIENT IS STABLE AND DENIES PAIN.
== END 2020-04-05 13:30 | disposition home or self-care (01) | DRG 812 ==
LOC: EDH 11:22 → EDHIP 11:23 → OBSVTOIN 11:23 → WSH 13:15
PROVIDERS: ADMIT Internal Medicine; ATTEND Internal Medicine
PROC: 30233N1 Transfusion of Nonautologous Red Blood Cells into Peripheral Vein, Percutaneous Approach (ICD-10-PCS; principal; 2020-04-03)
DX: D64.9 Anemia, unspecified (principal); D68.62 Lupus anticoagulant syndrome; Z68.41 Body mass index [BMI] 40.0-44.9, adult; E66.01 Morbid (severe) obesity due to excess calories; E78.5 Hyperlipidemia, unspecified; D63.8 Anemia in other chronic diseases classified elsewhere; J30.9 Allergic rhinitis, unspecified; K21.9 Gastro-esophageal reflux disease without esophagitis; K76.0 Fatty (change of) liver, not elsewhere classified; Z98.84 Bariatric surgery status; Z90.3 Acquired absence of stomach [part of]; Z90.79 Acquired absence of other genital organ(s); Z90.721 Acquired absence of ovaries, unilateral; Z85.028 Personal history of other malignant neoplasm of stomach; Z83.3 Family history of diabetes mellitus; Z82.5 Family history of asthma and other chronic lower respiratory diseases; Z82.3 Family history of stroke; Z82.0 Family history of epilepsy and other diseases of the nervous system; Z82.49 Family history of ischemic heart disease and other diseases of the circulatory system
CPT/HCPCS: 36415; 36430; 80048; 82270; 82607; 82728; 82746; 83540; 83550; 84132; 85014; 85018; 85027; 85610; 85730; 86156; 86850; 86860; 86870; 86880; 86885; 86900; 86901; 86905; 86922; 86971; 86978; C9113; G0378; J7030; P9016; Q0163

== ENCOUNTER → 2020-04-14 | Outpatient (CLI) | payer OTHER ==
[~2020-04-14] MED LIST changes: -ACET1TAB12 PO; -FAMO20TA8 PO; -FAMO40TA7 PO; -FERR325T22 PO; -FURO20TA6 PO; -OMEP40CA13 PO; +PANT40TA25 PO; -PANT40TA54 PO; -PRED10TA3 PO; -SUCR1ORA15 PO; -SUCR1TAB2 PO; +THIA100T91 PO
[2020-04-14 13:26] LABS: BASOPHILS % (AUTO) 0.5 % (0.0-5.0); EOSINOPHILS % (AUTO) 1.1 % (0.0-8.0); HEMATOCRIT 30.4 % (36-48); LYMPHOCYTES % (AUTO) 25.8 % (21.0-51.0); MEAN CORPUSCULAR HEMOGLOBIN 29.8 pg (27.0-33.0); MEAN CORPUSCULAR HGB CONC 30.3 g/dL (32.0-36.0); MEAN CORPUSCULAR VOLUME 98.4 fL (79-99); MONOCYTES % (AUTO) 5.5 % (3.0-13.0); NEUTROPHILS % (AUTO) 66.9 % (40.0-77.0); PLATELET COUNT (AUTO) 338 K/uL (130-400); RED BLOOD CELL COUNT(AUTO) 3.09 MIL/uL (4.00-5.50); WHITE BLOOD COUNT (AUTO) 5.7 K/uL (4.8-10.8)
== END | disposition home or self-care (01) ==
LOC: LAB 12:33
PROVIDERS: ATTEND Internal Medicine
DX: D50.9 Iron deficiency anemia, unspecified (principal)
CPT/HCPCS: 36415; 85025

== ENCOUNTER → 2020-04-29 | Outpatient (CLI) | payer OTHER ==
[~2020-04-29] MED LIST changes: -PANT40TA25 PO; +PANT40TA54 PO
[2020-04-29 13:47] LABS: BASOPHILS % (AUTO) 0.3 % (0.0-5.0); EOSINOPHILS % (AUTO) 0.4 % (0.0-8.0); HEMATOCRIT 31.3 % (36-48); LYMPHOCYTES % (AUTO) 13.5 % (21.0-51.0); MEAN CORPUSCULAR HEMOGLOBIN 32.5 pg (27.0-33.0); MEAN CORPUSCULAR HGB CONC 31.9 g/dL (32.0-36.0); MEAN CORPUSCULAR VOLUME 101.6 fL (79-99); MONOCYTES % (AUTO) 5.9 % (3.0-13.0); NEUTROPHILS % (AUTO) 79.5 % (40.0-77.0); PLATELET COUNT (AUTO) 182 K/uL (130-400); RED BLOOD CELL COUNT(AUTO) 3.08 MIL/uL (4.00-5.50); RED CELL DISTRIBUTION WIDTH 17.2 % (11.0-15.5); WHITE BLOOD COUNT (AUTO) 11.3 K/uL (4.8-10.8)
== END | disposition home or self-care (01) ==
LOC: LAB 13:13
PROVIDERS: ATTEND Internal Medicine
DX: D64.9 Anemia, unspecified (principal)
CPT/HCPCS: 36415; 85025

== ENCOUNTER → 2020-06-27 | Outpatient (CLI) | payer OTHER ==
[~2020-06-27] MED LIST changes: +PANT40TA25 PO; -PANT40TA54 PO
[2020-06-27 09:44] LABS: BASOPHILS % (AUTO) 0.5 % (0.0-5.0); EOSINOPHILS % (AUTO) 0.6 % (0.0-8.0); HEMATOCRIT 41.8 % (36-48); LYMPHOCYTES % (AUTO) 36.9 % (21.0-51.0); MEAN CORPUSCULAR HEMOGLOBIN 33.7 pg (27.0-33.0); MEAN CORPUSCULAR HGB CONC 33.5 g/dL (32.0-36.0); MEAN CORPUSCULAR VOLUME 100.7 fL (79-99); MONOCYTES % (AUTO) 5.7 % (3.0-13.0); NEUTROPHILS % (AUTO) 56.1 % (40.0-77.0); PLATELET COUNT (AUTO) 236 K/uL (130-400); RED BLOOD CELL COUNT(AUTO) 4.15 MIL/uL (4.00-5.50); RED CELL DISTRIBUTION WIDTH 11.6 % (11.0-15.5); WHITE BLOOD COUNT (AUTO) 9.3 K/uL (4.8-10.8)
[2020-06-27 10:19] LABS: INR 1.1 (0.85-1.15); PARTIAL THROMBOPLASTIN TIME 52.4 SEC (26.3-35.5); PROTHROMBIN TIME 11.8 SEC (9.6-11.6)
[2020-06-27 10:39] LABS: ALANINE AMINOTRANSFERASE 24 U/L (12-78); ALBUMIN 3.3 g/dL (3.5-5.0); ASPARTATE AMINOTRANSFERASE 16 U/L (10-37); BILIRUBIN,TOTAL 0.4 mg/dL (0.2-1.0); CARBON DIOXIDE 29 mmol/L (21-32); CHLORIDE 106 mmol/L (101-111); CHOLESTEROL 192 mg/dL (<200); CREATININE 0.9 mg/dL (0.5-1.5); GLOMERULAR FILTR. RATE CALC 74 mL/min (>60); GLUCOSE,RANDOM 82 mg/dL (70-105); HDL CHOLESTEROL 61 mg/dL (35-85); LDL DIRECT 120 mg/dL (0-99); POTASSIUM 3.3 mmol/L (3.5-5.1); SODIUM SERUM 142 mmol/L (136-145); TOTAL PROTEIN, SERUM 7.9 g/dL (6.0-8.3); TRIGLYCERIDES 68 mg/dL (30-200); UREA NITROGEN, BLOOD 22 mg/dL (7-18)
[2020-06-27 11:11] LABS: % IRON SATURATION 25.3 % (22-44)
== END | disposition home or self-care (01) ==
LOC: LAB 08:45
PROVIDERS: ATTEND Internal Medicine
DX: C49.A2 Gastrointestinal stromal tumor of stomach (principal); D64.9 Anemia, unspecified
CPT/HCPCS: 36415; 80053; 80061; 82306; 82607; 82746; 83540; 83550; 83970; 84425; 85025; 85610; 85730

== ENCOUNTER → 2020-12-26 | Outpatient (CLI) | payer OTHER ==
[~2020-12-26] MED LIST changes: +IOHEXOL-350 75 ML VIAL IV ONE; -MONT10TA26 PO; +MONT10TA32 PO; -PANT40TA25 PO; +PANT40TA54 PO
== END | disposition home or self-care (01) ==
LOC: RAH 11:05
PROVIDERS: ATTEND Internal Medicine Gastroenterology
DX: C49.A2 Gastrointestinal stromal tumor of stomach (principal); K76.0 Fatty (change of) liver, not elsewhere classified; K57.30 Diverticulosis of large intestine without perforation or abscess without bleeding; R59.0 Localized enlarged lymph nodes; E27.8 Other specified disorders of adrenal gland
CPT/HCPCS: 74160; Q9967

== ENCOUNTER → 2021-10-14 | Outpatient (CLI) | payer OTHER ==
[~2021-10-14] MED LIST changes: -IOHEXOL-350 75 ML VIAL IV ONE; +MONT-39 PO; -MONT10TA32 PO
== END | disposition home or self-care (01) ==
LOC: RAH 09:40
PROVIDERS: ATTEND Internal Medicine
DX: Z12.31 Encounter for screening mammogram for malignant neoplasm of breast (principal)
CPT/HCPCS: 77067

== ENCOUNTER → 2021-12-04 | Outpatient (CLI) | payer OTHER ==
[2021-12-04 09:44] LABS: BASOPHILS % (AUTO) 0.3 % (0.0-5.0); EOSINOPHILS % (AUTO) 1.7 % (0.0-8.0); HEMATOCRIT 37.7 % (36-48); LYMPHOCYTES % (AUTO) 30.8 % (21.0-51.0); MEAN CORPUSCULAR HEMOGLOBIN 30.6 pg (27.0-33.0); MEAN CORPUSCULAR HGB CONC 33.2 g/dL (32.0-36.0); MEAN CORPUSCULAR VOLUME 92.4 fL (79-99); MONOCYTES % (AUTO) 6.6 % (3.0-13.0); NEUTROPHILS % (AUTO) 60.4 % (40.0-77.0); PLATELET COUNT (AUTO) 183 K/uL (130-400); RED BLOOD CELL COUNT(AUTO) 4.08 MIL/uL (4.00-5.50); RED CELL DISTRIBUTION WIDTH 13.7 % (11.0-15.5)
[2021-12-04 10:22] LABS: ALBUMIN 3.5 g/dL (3.5-5.0); BILIRUBIN,TOTAL 0.5 mg/dL (0.2-1.0); CREATININE 0.8 mg/dL (0.5-1.5); POTASSIUM 4.1 mmol/L (3.5-5.1); TOTAL PROTEIN, SERUM 8.5 g/dL (6.0-8.3)
== END | disposition home or self-care (01) ==
LOC: LAB 08:46
PROVIDERS: ATTEND Internal Medicine
DX: D68.62 Lupus anticoagulant syndrome (principal); D50.0 Iron deficiency anemia secondary to blood loss (chronic); E88.81 Metabolic syndrome and other insulin resistance; E87.6 Hypokalemia; E78.2 Mixed hyperlipidemia; R94.5 Abnormal results of liver function studies
CPT/HCPCS: 36415; 80053; 80061; 82306; 82607; 82746; 83970; 85025

== ENCOUNTER 2021-12-24 12:44 | Emergency (ER) | payer OTHER ==
[~2021-12-24] VITALS: Ht 157.5 cm; Wt 101.6 kg
[2021-12-24 13:13] LABS: BASOPHILS % (AUTO) 0.4 % (0.0-5.0); HEMATOCRIT 36.5 % (36-48); LYMPHOCYTES % (AUTO) 22.9 % (21.0-51.0); MEAN CORPUSCULAR HEMOGLOBIN 31.1 pg (27.0-33.0); MEAN CORPUSCULAR HGB CONC 33.7 g/dL (32.0-36.0); MEAN CORPUSCULAR VOLUME 92.4 fL (79-99); MONOCYTES % (AUTO) 6.1 % (3.0-13.0); NEUTROPHILS % (AUTO) 69.2 % (40.0-77.0); PLATELET COUNT (AUTO) 193 K/uL (130-400); RED BLOOD CELL COUNT(AUTO) 3.95 MIL/uL (4.00-5.50); RED CELL DISTRIBUTION WIDTH 13.5 % (11.0-15.5); WHITE BLOOD COUNT (AUTO) 8.3 K/uL (4.8-10.8)
[2021-12-24 13:21] LABS: APPEARANCE,URINE CLEAR (CLEAR); BILIRUBIN,URINE NEGATIVE (NEGATIVE); COLOR,URINE YELLOW (YELLOW); GLUCOSE, URINE (UA) NEGATIVE (NEGATIVE); KETONES,URINE NEGATIVE (NEGATIVE); LEUKOCYTE ESTERASE ,URINE NEGATIVE (NEGATIVE); NITRATE,URINE NEGATIVE (NEGATIVE); OCCULT BLOOD,URINE NEGATIVE (NEGATIVE); PH,URINE 5.5 (5.0-8.0); PROTEIN,URINE NEGATIVE (NEGATIVE); UROBILINOGEN,URINE 0.2 mg/dL (0.2-1.0)
[2021-12-24 13:23] LABS: CREATININE 0.8 mg/dL (0.5-1.5); POTASSIUM 3.8 mmol/L (3.5-5.1)
[2021-12-24 13:24] LABS: HCG,QUAL RESULT NEGATIVE (NEGATIVE)
[2021-12-24] MEDS ORDERED: MORPHINE 4 MG SYG IV ONE ×2 (13:30→15:30)
[2021-12-24] MEDS ORDERED: FAMOTIDINE 20MG VIAL IV ONE (13:30)
[2021-12-24] MEDS ORDERED: ONDANSETRON 4MG INJ IVP ONE (13:30)
[2021-12-24] MEDS ORDERED: 0.9%NACL 1000ML 1,000 ML IV ONE (13:30)
[2021-12-24 13:37] LABS: ALBUMIN 3.7 g/dL (3.5-5.0); BILIRUBIN,TOTAL 0.4 mg/dL (0.2-1.0); TOTAL PROTEIN, SERUM 8.1 g/dL (6.0-8.3)
[2021-12-24] MEDS ORDERED: IOHEXOL-350 75 ML VIAL IV ONE (14:04)
[2021-12-24] MEDS ORDERED: KETOROLAC 30MG VIAL (30MG/ML) ONE (14:58)
[2021-12-24] MEDS ORDERED: ONDANSETRON 4MG INJ ONE (14:58)
[2021-12-24 16:14] VITALS: BP 134/65
[2021-12-24] MEDS ORDERED: TRAM50TA2 PO (16:33)
[2021-12-24] MEDS ORDERED: TRAMADOL HCL 50 MG TABLET ONE (16:46)
== END 2021-12-24 16:42 | disposition home or self-care (01) ==
LOC: EDH 13:04
DX: N83.202 Unspecified ovarian cyst, left side (principal); Z79.899 Other long term (current) drug therapy
CPT/HCPCS: 36415; 74177; 76856; 80053; 81003; 81025; 83690; 84702; 85025; 86900; 86901; 96374; 96375; 96376; 99285; J1885; J2270; J2405 ×2; J3490; J7030; Q9967

== ENCOUNTER 2022-10-27 05:01 | Emergency (ER) | payer BC, OTHER ==
[~2022-10-27] VITALS: Ht 154.9 cm; Wt 97.5 kg
[~2022-10-27 05:01] MED LIST changes: +TRAM50TA2 PO
[2022-10-27 05:39] LABS: APPEARANCE,URINE CLEAR (CLEAR); BILIRUBIN,URINE NEGATIVE (NEGATIVE); COLOR,URINE LIGHT-YELLOW (YELLOW); GLUCOSE, URINE (UA) NEGATIVE (NEGATIVE); KETONES,URINE NEGATIVE (NEGATIVE); LEUKOCYTE ESTERASE ,URINE NEGATIVE Leu/uL (NEGATIVE); NITRATE,URINE NEGATIVE (NEGATIVE); PH,URINE 5.5 (5.0-8.0); PROTEIN,URINE 10 mg/dL (NEGATIVE); UROBILINOGEN,URINE 0.2 mg/dL (0.2-1.0)
[2022-10-27 05:42] LABS: OCCULT BLOOD,URINE NEGATIVE (NEGATIVE)
[2022-10-27] MEDS ORDERED: 0.9%NACL 1000ML 1,000 ML IV ONE (07:00)
[2022-10-27 07:01] LABS: BASOPHILS % (AUTO) 0.3 % (0.0-5.0); EOSINOPHILS % (AUTO) 1.7 % (0.0-8.0); HEMATOCRIT 32.6 % (36-48); LYMPHOCYTES % (AUTO) 22.9 % (21.0-51.0); MEAN CORPUSCULAR HEMOGLOBIN 32.8 pg (27.0-33.0); MEAN CORPUSCULAR VOLUME 93.7 fL (79-99); NEUTROPHILS % (AUTO) 67.6 % (40.0-77.0); PLATELET COUNT (AUTO) 183 K/uL (130-400); RED BLOOD CELL COUNT(AUTO) 3.48 MIL/uL (4.00-5.50); RED CELL DISTRIBUTION WIDTH 14.1 % (11.0-15.5); WHITE BLOOD COUNT (AUTO) 8.9 K/uL (4.8-10.8)
[2022-10-27 07:42] LABS: ALBUMIN 3.2 g/dL (3.5-5.0); CREATININE 0.9 mg/dL (0.5-1.5); POTASSIUM 3.5 mmol/L (3.5-5.1); TOTAL PROTEIN, SERUM 7.7 g/dL (6.0-8.3)
[2022-10-27 07:51] VITALS: BP 173/70
[2022-10-27] MEDS ORDERED: LEVOFLOXACIN 500 MG TABLET PO SCH (08:00)
[2022-10-27] MEDS ORDERED: LOPE2 PO (08:03)
[2022-10-27] MEDS ORDERED: IBUP-2070 PO (08:03)
[2022-10-27] MEDS ORDERED: LEVO-70 PO (08:03)
[2022-10-27] MEDS ORDERED: LOPERAMIDE HCL 2 MG CAP PO ONE (08:30)
== END 2022-10-27 08:18 | disposition home or self-care (01) ==
LOC: EDH 05:01
DX: K52.9 Noninfective gastroenteritis and colitis, unspecified (principal); Z86.2 Personal history of diseases of the blood and blood-forming organs and certain disorders involving the immune mechanism; Z90.710 Acquired absence of both cervix and uterus; Z79.899 Other long term (current) drug therapy; Z20.822 Contact with and (suspected) exposure to COVID-19
CPT/HCPCS: 99283; 96360; 87635; 80053; 85025; 81003; 81025; 36415; C9803; J7030

== ENCOUNTER → 2023-08-04 | Outpatient (CLI) | payer BC ==
[~2023-08-04] MED LIST changes: +IBUP-2070 PO; +LEVO-70 PO; +LOPE2 PO; +POTA-364 PO; -POTA-79 PO
== END | disposition home or self-care (01) ==
LOC: RAH 15:14
PROVIDERS: ATTEND Internal Medicine
DX: Z12.31 Encounter for screening mammogram for malignant neoplasm of breast (principal)
CPT/HCPCS: 77067

== ENCOUNTER → 2024-08-06 | Outpatient (CLI) | payer BC ==
[~2024-08-06] MED LIST changes: -CYAN250014 PO; +FERR-72 PO; +FURO20TA4 PO; -FURO40TA5 PO; -IBUP-2070 PO; -IRON SUPPLEMENT PO; -LEVO-70 PO; -LOPE2 PO; +METO25TA6 PO; -MONT-39 PO; -POTA-364 PO; -THIA100T91 PO; -TRAM50TA2 PO
== END | disposition home or self-care (01) ==
LOC: RAH 10:27
PROVIDERS: ATTEND Internal Medicine
DX: Z12.31 Encounter for screening mammogram for malignant neoplasm of breast (principal); R92.323 Mammographic fibroglandular density, bilateral breasts
CPT/HCPCS: 77067

== ENCOUNTER → 2024-09-25 | Outpatient (CLI) | payer BC ==
--- NOTE | 2024-10-17 11:33 | HMCSR ---
APPROVED REPORT EXAM: Two-dimensional and M-mode echocardiogram with Doppler and color Doppler. 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 2D Dimensions RVDd3.0 cmLVEF(%)39.8 (>50%)LVED Vol(simp.)179.0 mL IVSd1.3 (0.7-1.1cm)FS(%)20 %LVES Vol(simp.)99.0 mL LVDd5.3 (3.8-5.6cm)Ao Root(2D)2.9 (2.0-3.7cm)LVEF(%, simp.)45 % PWd1.2 (0.7-1.1cm)LVOT diam2.1 (1.8-2.4cm)LA ESV INDEX (BP)38.32 mL/m2 LVDs4.3 (2.5-4.0cm)IVC diam1.7 cm Aortic Valve AoV Vmax4.5 m/Risa Peak GR80.7 mmHgLVOT Vmax1.1 m/s AoV VTI1.1 mAo Mean GR52.8 mmHgLVOT VTI0.30 m IVONE (VMAX)0.9 cm2Al P1/2T358 msAVA (VTI) 0.9 cm2 Mitral Valve MV E Vmax83.5 cm/sDECEL Qxdr399 ms MV A Vmax62.8 cm/sP 1/2 T60 ms E/A ratio1.3MVA (PHT)3.7 cm2 MR Max PG132 mmHg TDI E/E' Lhltni03.3E/E' Lateral7.5 Pulmonary Valve PV Vmax1.0 m/sPV VTI0.24 mPV Mean GR2 mmHg PV Peak GR3.7 mmHgPI End Cheli. Ottoniel 1.5 cm/s Tricuspid Valve TR Vmax2.6 m/sRAP (EST) 3 qaGxFUED80.3 mmHg TR Peak GR27.3 mmHg Left Ventricle The left ventricle is mildly dilated. There is mild concentric left ventricular hypertrophy. LVEF is 50-55%. Left ventricular diastolic function is indeterminate. Right Ventricle The right ventricle is normal size. The right ventricular systolic function is normal. Atria The left atrium is mildly dilated. The right atrium size is normal. Aortic Valve Aortic valve is trileaflet. Aortic valve leaflets are thickened and calcified. Moderate aortic regurg itation. AV Dimensionless Index is 0.26 Calculated aortic valve area is 0.9 cm2 with maximum pressure gradient of 80.7 mmHg and mean pressure gradient of 52.8 mmHg. Mitral Valve Mitral valve leaflets are mildly sclerotic but open well. Mitral regurgitation is mild. There is no m itral valve stenosis. Tricuspid Valve The tricuspid valve leaflets appear normal. There is trace to mild tricuspid regurgitation. Right cal tricular systolic pressure is estimated at 30 mmHg. Pulmonic Valve The pulmonic valve leaflets are thin and pliable; valve motion is normal. There is trace valvular reg urgitation. Great Vessels The aortic root is normal in size. The IVC is normal in size and collapses >50% with inspiration. Pericardium No pericardial effusion. Other Information Quality : GoodRhythm : NSR Conclusion LVEF is 50-55%. There is mild concentric left ventricular hypertrophy. The left atrium is mildly dilated. Aortic valve sclerosis without stenosis. Mitral regurgitation is mild. Moderate aortic regurgitation.
== END | disposition home or self-care (01) ==
LOC: SHCH 09:37
PROVIDERS: ATTEND Internal Medicine
DX: I08.3 Combined rheumatic disorders of mitral, aortic and tricuspid valves (principal); I25.10 Atherosclerotic heart disease of native coronary artery without angina pectoris
CPT/HCPCS: 93306

== ENCOUNTER → 2025-01-01 | Outpatient (CLI) | payer BC ==
--- NOTE | 2025-01-02 06:54 | HMCSR ---
APPROVED REPORT Laterality: Bilateral Indications R09.89 Doppler Spectral Velocity Analysis PSV / EDVPSV / EDV ECA (R) 97 / cm/sECA (L) 93 / cm/s dICA (R) 101 / 39 cm/sdICA (L) 130 / 37 cm/s John (R) 95 / 32 cm/smICA (L) 93 / 30 cm/s pICA (R) 106 / 19 cm/spICA (L) 98 / 21 cm/s dCCA (R) 101 / 22 cm/sdCCA (L) 85 / 16 cm/s mCCA (R) 110 / 19 cm/smCCA (L) 97 / 15 cm/s pCCA (R) 140 / 14 cm/spCCA (L) 104 / 24 cm/s Vert (R) 59 / cm/sVert (L) 65 / cm/s Subl. (R) 162 / cm/sSubl. (L) 162 / cm/s ICA/CCA 0.76ICA/CCA 1.25 Technologist Impression Minimal plaque noted in the bilateral carotids. CHUCK & LICA appear patent without hemodynamic significance. Bilateral vertebral arteries appear antegrade. Conclusion Minimal plaque noted in the bilateral carotids, without hemodynamic significance. Bilateral vertebral arteries appear antegrade. Conclusion Minimal plaque noted in the bilateral carotids, without hemodynamic significance. Bilateral vertebral arteries appear antegrade.
== END | disposition home or self-care (01) ==
LOC: SHCH 09:12
PROVIDERS: ATTEND Internal Medicine
DX: R09.89 Other specified symptoms and signs involving the circulatory and respiratory systems (principal)
CPT/HCPCS: 93880

== ENCOUNTER → 2025-09-10 | Outpatient (CLI) | payer BC ==
[~2025-09-10] MED LIST changes: +ALBUHFA IH; +ATOR20TA65 PO; -FERR-72 PO; -FURO20TA4 PO; +FURO40TA5 PO; +LORA10TA7 PO; +MONT-39 PO; +POTA-202 PO; +PRED10TA3 PO
--- NOTE | 2025-09-11 12:09 | HMCIMG ---
DIGITAL BILATERAL SCREENING MAMMOGRAM Technique: The digital mammographic examination of both breasts in craniocaudal and mediolateral oblique views along with CAD was obtained. History: This is a 44 years year-old female 3, para1 Ab2. Patient has no family history of breast cancer. Patient has no complaint Reference:Prior mammogram from 08/06/2024 is available. Breast composition: Breast composition B: There are scattered areas of fibroglandular density. Finding: The digital mammographic examination of both breasts in craniocaudal and mediolateral oblique view along with CAD demonstrates both breasts mildly heterogeneously dense due to fibroglandular stromal elements.. There is no evidence of any dendritic mass, cluster microcalcification or architectural distortion. The retromammary fat appears to be normal. IMPRESSION: Unchanged from prior mammography. NO RADIOGRAPHIC EVIDENCE OF MALIGNANT CHANGES. WE WOULD RECOMMEND ANNUAL FOLLOW UP WITH TOMOSYNTHESIS UNLESS OTHERWISE CLINICALLY INDICATED. FINAL ASSESSMENT: ACR: BI-RAD - 1. Negative Mammogram. NOTE: IF A WORK-UP OF THIS PATIENT LEADS TO A BIOPSY, PLEASE FORWARD A COPY OF THE PATHOLOGY REPORT TO OUR OFFICE REQUIRED BY SA EFFECTIVE JULY 24, 1994. A NEGATIVE MAMMOGRAM SHOULD NOT PRECLUDE BIOPSY OF A CLINICALLY PALPABLE SUSPICIOUS MASS, 10% OF BREAST CANCERS ARE MAMMOGRAPHICALLY OCCULT. THIS MAMMOGRAPHY FACILITY IS FULLY ACCREDITED BY THE FOOD AND DRUG ADMINISTRATION (FDA). THANK YOU FOR THIS REFERRAL.
== END | disposition home or self-care (01) ==
LOC: RAH 08:15
PROVIDERS: ATTEND Internal Medicine
DX: Z12.31 Encounter for screening mammogram for malignant neoplasm of breast (principal)
CPT/HCPCS: 77067